=== PATIENT | male | born 1935 | race Two or more races ===

== ENCOUNTER → 2016-08-14 | Outpatient (CLI) | payer OTHER ==
[2016-08-14 06:48] LABS: Urine RBC None Seen /hpf (0 - 3)
[2016-08-14 08:15] LABS: Basophils # (auto) 0.1 uL; Basophils % (auto) 0.6 % (0.0-2.0); Eosinophils # (auto) 0.5 uL; Eosinophils % (auto) 4.3 % (0.0-7.0); Hematocrit 43.1 % (41.0-53.0); Lymphocytes # (auto) 4.7 uL; Lymphocytes % (auto) 42.6 % (10.0-50.0); Mean Corpuscular Hemoglobin 28.5 pg (28.0-32.0); Mean Corpuscular Hgb Conc. 32.4 g/dL (32.0-36.0); Mean Corpuscular Volume 87.9 fL (80.0-100.0); Monocytes # (auto) 0.8 uL; Monocytes % (auto) 6.8 % (0.0-12.0); Neutrophils # (auto) 5.1 uL; Neutrophils % (auto) 45.7 % (37.0-80.0); Platelet Count (auto) 342 10^3/uL (140-450); Red Cell Distribution Width 15.6 % (11.6-16.0); White Blood Cell 11.1 10^3/uL (4.4-10.8)
[2016-08-14 08:37] LABS: Urine Bilirubin Negative (Negative); Urine Blood Negative /uL (Negative); Urine Color Yellow (Yellow); Urine Glucose Normal (Normal); Urine Ketone Negative (Negative); Urine Nitrite Negative (Negative); Urine Squamous Epithelial Cell FEW /hpf (<5); Urine Urobilinogen Normal (Negative)
[2016-08-14 08:48] LABS: Albumin 3.3 g/dL (3.4-5.0); BUN/Creatinine Ratio 20.2; Bilirubin, Total 0.4 mg/dL (0.2-1.0); Calcium 8.7 mg/dL (8.5-10.1); Potassium 4.1 mmol/L (3.5-5.1); Total Protein 6.7 g/dL (6.4-8.2)
== END | disposition home or self-care (01) ==
LOC: LAB 06:36
DX: E11.21 Type 2 diabetes mellitus with diabetic nephropathy (principal); E55.9 Vitamin D deficiency, unspecified
CPT/HCPCS: 36415; 80053; 80061; 81001; 82043; 82306; 83036; 84443; 85025

== ENCOUNTER → 2017-06-16 | Outpatient (CLI) | payer OTHER ==
[2017-06-16 07:20] LABS: Basophils # (auto) 0.1 uL; Eosinophils # (auto) 0.5 uL; Eosinophils % (auto) 4.1 % (0.0-7.0); Hematocrit 43.7 % (41.0-53.0); Hemoglobin 14.5 g/dL (13.5-17.5); Lymphocytes # (auto) 3.8 uL; Lymphocytes % (auto) 34.1 % (10.0-50.0); Mean Corpuscular Hemoglobin 29.9 pg (28.0-32.0); Mean Corpuscular Hgb Conc. 33.2 g/dL (32.0-36.0); Monocytes % (auto) 9.2 % (0.0-12.0); Neutrophils # (auto) 5.8 uL; Neutrophils % (auto) 51.6 % (37.0-80.0); Nucleated Red Blood Cells % 0.1 %; Platelet Count (auto) 312 10^3/uL (140-450); Red Blood Cells 4.86 10^6/uL (4.5-5.90); Red Cell Distribution Width 14.6 % (11.8-14.3); White Blood Cell 11.2 10^3/uL (4.4-10.8)
[2017-06-16 07:36] LABS: Albumin 3.4 g/dL (3.4-5.0); BUN/Creatinine Ratio 24.8; Bilirubin, Total 0.3 mg/dL (0.2-1.0); Calcium 8.7 mg/dL (8.5-10.1); Potassium 4.1 mmol/L (3.5-5.1); Total Protein 6.9 g/dL (6.4-8.2)
== END | disposition home or self-care (01) ==
LOC: LAB 06:34
PROVIDERS: ATTEND Physician Assistant
DX: E11.21 Type 2 diabetes mellitus with diabetic nephropathy (principal); E78.2 Mixed hyperlipidemia; E78.5 Hyperlipidemia, unspecified; E55.9 Vitamin D deficiency, unspecified; N40.0 Benign prostatic hyperplasia without lower urinary tract symptoms
CPT/HCPCS: 36415; 80053; 80061; 82043; 82306; 83036; 84153; 85025

== ENCOUNTER → 2017-11-04 | Outpatient (CLI) | payer OTHER ==
[2017-11-04 08:10] LABS: Basophils # (auto) 0.1 uL; Basophils % (auto) 0.9 % (0.0-2.0); Eosinophils # (auto) 0.4 uL; Hemoglobin 14.5 g/dL (13.5-17.5); Lymphocytes # (auto) 3.9 uL; Mean Corpuscular Hemoglobin 30.3 pg (28.0-32.0); Mean Corpuscular Hgb Conc. 32.9 g/dL (32.0-36.0); Mean Corpuscular Volume 92.2 fL (80.0-100.0); Monocytes # (auto) 0.7 uL; Monocytes % (auto) 8.4 % (0.0-12.0); Neutrophils # (auto) 3.6 uL; Neutrophils % (auto) 40.7 % (37.0-80.0); Nucleated Red Blood Cells % 0.1 %; Platelet Count (auto) 284 10^3/uL (140-450); Red Blood Cells 4.77 10^6/uL (4.5-5.90); Red Cell Distribution Width 13.4 % (11.8-14.3); White Blood Cell 8.7 10^3/uL (4.4-10.8)
[2017-11-04 09:00] LABS: Albumin 3.3 g/dL (3.4-5.0); Bilirubin, Total 0.2 mg/dL (0.2-1.0); Potassium 4.4 mmol/L (3.5-5.1); Total Protein 6.6 g/dL (6.4-8.2)
== END | disposition home or self-care (01) ==
LOC: LAB 07:05
PROVIDERS: ATTEND Internal Medicine Cardiovascular Disease
DX: I10 Essential (primary) hypertension (principal); E78.2 Mixed hyperlipidemia; E11.9 Type 2 diabetes mellitus without complications
CPT/HCPCS: 36415; 80053; 80061; 85025

== ENCOUNTER → 2018-02-25 | Outpatient (CLI) | payer OTHER ==
[2018-02-25 07:01] LABS: Urine Bacteria NONE SEEN /hpf (None Seen); Urine Blood TRACE /uL (Negative); Urine Specific Gravity 1.022 (1.001-1.035); Urine WBC 1 /hpf (0 - 3)
[2018-02-25 07:03] LABS: Basophils # (auto) 0.1 uL; Basophils % (auto) 0.8 % (0.0-2.0); Eosinophils # (auto) 0.5 uL; Eosinophils % (auto) 4.6 % (0.0-7.0); Hematocrit 44.7 % (41.0-53.0); Hemoglobin 15.1 g/dL (13.5-17.5); Lymphocytes # (auto) 4.7 uL; Lymphocytes % (auto) 46.5 % (10.0-50.0); Mean Corpuscular Hemoglobin 30.9 pg (28.0-32.0); Mean Corpuscular Hgb Conc. 33.7 g/dL (32.0-36.0); Mean Corpuscular Volume 91.7 fL (80.0-100.0); Monocytes # (auto) 0.9 uL; Neutrophils # (auto) 3.9 uL; Neutrophils % (auto) 39.1 % (37.0-80.0); Nucleated Red Blood Cells % 0.1 %; Platelet Count (auto) 290 10^3/uL (140-450); Red Blood Cells 4.87 10^6/uL (4.5-5.90); White Blood Cell 10.1 10^3/uL (4.4-10.8)
[2018-02-25 07:14] LABS: Albumin 3.4 g/dL (3.4-5.0); Calcium 8.4 mg/dL (8.5-10.1); Potassium 4.2 mmol/L (3.5-5.1)
[2018-02-25 07:16] LABS: BUN/Creatinine Ratio 20.7
[2018-02-25 07:23] LABS: Bilirubin, Total 0.8 mg/dL (0.2-1.0); Total Protein 6.9 g/dL (6.4-8.2)
== END | disposition home or self-care (01) ==
LOC: LAB 06:26
PROVIDERS: ATTEND Physician Assistant
DX: N40.0 Benign prostatic hyperplasia without lower urinary tract symptoms (principal); I12.9 Hypertensive chronic kidney disease with stage 1 through stage 4 chronic kidney disease, or unspecified chronic kidney disease; E11.22 Type 2 diabetes mellitus with diabetic chronic kidney disease; N18.3 Chronic kidney disease, stage 3 (moderate); E11.21 Type 2 diabetes mellitus with diabetic nephropathy; E78.2 Mixed hyperlipidemia
CPT/HCPCS: 36415; 80053; 80061; 81001; 82306; 83036; 84153; 85025

== ENCOUNTER → 2019-04-23 | Outpatient (CLI) | payer OTHER ==
[2019-04-23 07:36] LABS: Basophils # (auto) 0.1 uL; Basophils % (auto) 0.9 % (0.0-2.0); Eosinophils # (auto) 0.2 uL; Eosinophils % (auto) 2.1 % (0.0-7.0); Hematocrit 44.7 % (41.0-53.0); Lymphocytes # (auto) 3.1 uL; Lymphocytes % (auto) 31.7 % (10.0-50.0); Mean Corpuscular Hemoglobin 30.7 pg (28.0-32.0); Mean Corpuscular Hgb Conc. 33.6 g/dL (32.0-36.0); Mean Corpuscular Volume 91.3 fL (80.0-100.0); Monocytes # (auto) 0.8 uL; Monocytes % (auto) 8.3 % (0.0-12.0); Neutrophils # (auto) 5.6 uL; Platelet Count (auto) 263 10^3/uL (140-450); Red Cell Distribution Width 14.4 % (11.8-14.3); White Blood Cell 9.9 10^3/uL (4.4-10.8)
[2019-04-23 07:51] LABS: Urine Bacteria NONE SEEN /hpf (None Seen); Urine Blood Negative /uL (Negative); Urine Specific Gravity 1.021 (1.001-1.035); Urine WBC 1 /hpf (0 - 3)
[2019-04-23 08:03] LABS: Albumin 3.5 g/dL (3.4-5.0); Calcium 8.8 mg/dL (8.5-10.1); Potassium 4.3 mmol/L (3.5-5.1)
[2019-04-23 08:10] LABS: BUN/Creatinine Ratio 21.7; Bilirubin, Total 0.7 mg/dL (0.2-1.0); Total Protein 6.6 g/dL (6.4-8.2)
== END | disposition home or self-care (01) ==
LOC: LAB 07:10
PROVIDERS: ATTEND Physician Assistant
DX: E11.9 Type 2 diabetes mellitus without complications (principal); E55.9 Vitamin D deficiency, unspecified; E78.5 Hyperlipidemia, unspecified; I25.10 Atherosclerotic heart disease of native coronary artery without angina pectoris; N40.0 Benign prostatic hyperplasia without lower urinary tract symptoms
CPT/HCPCS: 36415; 80053; 80061; 81001; 82306; 83036; 84153; 85025

== ENCOUNTER → 2019-06-09 | Outpatient (CLI) | payer OTHER | END | disposition home or self-care (01) | LOC: XYW 08:19 | PROVIDERS: ATTEND Internal Medicine | DX: I05.9 Rheumatic mitral valve disease, unspecified (principal); I11.9 Hypertensive heart disease without heart failure; R00.0 Tachycardia, unspecified | CPT/HCPCS: 93306 ==

== ENCOUNTER → 2019-06-28 | Outpatient (CLI) | payer OTHER ==
[~2019-06-28] MED LIST: CHLO25TA22 PO; ERGO1CAP6 PO; GLIP10TA9 PO; LISI10TA6 PO; LOVA20TA4 PO
[2019-06-28 09:09] LABS: BUN/Creatinine Ratio 40.6; Calcium 8.9 mg/dL (8.5-10.1)
== END | disposition home or self-care (01) ==
LOC: LAB 08:16
PROVIDERS: ATTEND Internal Medicine
DX: R60.0 Localized edema (principal)
CPT/HCPCS: 36415; 80048; 83880

== ENCOUNTER 2019-06-29 09:22 | Inpatient (IN) | payer OTHER, MEDICAID ==
[~2019-06-29] VITALS: Ht 165.1 cm; Wt 59.7 kg
--- NOTE | 2019-06-29 09:33 | NUR ---
Pt Arrived on Unit Pt arrived on unit as a direct admit. Pt is a/ox4 with no s/s of distress or SOB. Placed pt in a gown and pt was able to ambulate to bedside from wheelchair without any difficulty. Safety measures maintained with bed in lowest position and side rails up. secretary to board of commissioners notified Dr Adam that pt is on unit. Will continue to monitor for changes q1hr and prn.
[2019-06-29 10:23] VITALS: BP 106/61
[2019-06-29] MEDS ORDERED: LISI10TA6 PO (10:37)
[2019-06-29] MEDS ORDERED: CHLO25TA22 PO (10:37)
[2019-06-29] MEDS ORDERED: ERGO1CAP6 PO (10:37)
[2019-06-29] MEDS ORDERED: GLIP10TA9 PO (10:37)
[2019-06-29] MEDS ORDERED: LOVA20TA4 PO (10:37)
--- NOTE | 2019-06-29 11:21 | NUR ---
Dr Adam at Bedside MD to see pt. MD will place orders.
[2019-06-29] MEDS ORDERED: MORPHINE SULF INJ 2 MG/ML SYRINGE 1ML IV PRN (11:30)
[2019-06-29] MEDS ORDERED: traMADol HCL 50 MG TAB PO PRN (11:30)
[2019-06-29] MEDS ORDERED: NITROGLYCERIN 0.4 MG SL TAB SL PRN (11:30)
[2019-06-29] MEDS ORDERED: ONDANSETRON HCL 4 MG/2 ML VIAL IV PRN (11:30)
[2019-06-29] MEDS ORDERED: DEXTROSE (50%) 50ML SYRG IV PRN (11:30)
--- NOTE | 2019-06-29 11:40 | NUR ---
UA Sent to Lab
[2019-06-29 11:51] LABS: Urine WBC None Seen /hpf (0 - 3)
[2019-06-29 11:58] LABS: Urine Bacteria NONE SEEN /hpf (None Seen); Urine Blood Negative /uL (Negative); Urine Specific Gravity 1.005 (1.001-1.035)
[2019-06-29 11:59] LABS: Basophils # (auto) 0.1 uL; Basophils % (auto) 0.5 % (0.0-2.0); Eosinophils # (auto) 0.2 uL; Hematocrit 47.1 % (41.0-53.0); Hemoglobin 15.6 g/dL (13.5-17.5); Lymphocytes # (auto) 2.9 uL; Lymphocytes % (auto) 18.6 % (10.0-50.0); Mean Corpuscular Hemoglobin 29.9 pg (28.0-32.0); Mean Corpuscular Hgb Conc. 33.1 g/dL (32.0-36.0); Mean Corpuscular Volume 90.2 fL (80.0-100.0); Monocytes # (auto) 1.1 uL; Monocytes % (auto) 7.2 % (0.0-12.0); Neutrophils # (auto) 11.2 uL; Neutrophils % (auto) 72.7 % (37.0-80.0); Nucleated Red Blood Cells % 0.2 %; Platelet Count (auto) 381 10^3/uL (140-450); Red Blood Cells 5.22 10^6/uL (4.5-5.90); Red Cell Distribution Width 14.3 % (11.8-14.3); White Blood Cell 15.4 10^3/uL (4.4-10.8)
--- NOTE | 2019-06-29 12:10 | NUR ---
IV Insertion 20G placed to pt's R FA. Clean sterile technique was used. Site is asymptomatic. IV is patent and flushes well. One attempt made. Pt tolerated insertion well.
[2019-06-29 12:14] LABS: INR 1.03 (0.9-1.15); Partial Thromboplastin Time 28.1 sec (23.64-32.05)
[2019-06-29 12:20] LABS: Albumin 3.3 g/dL (3.4-5.0); Calcium 9.1 mg/dL (8.5-10.1)
[2019-06-29] MEDS: SODIUM CHLORIDE 0.9% 1,000 ML IV SCH (12:21)
[2019-06-29] MEDS: ACCU-CHEK COMFORT CURVE STRIP VI SCH ×3 (12:21→22:32)
[2019-06-29 12:23] LABS: BUN/Creatinine Ratio 51.4; Bilirubin, Total 0.4 mg/dL (0.2-1.0); Total Protein 7.3 g/dL (6.4-8.2)
[2019-06-29] MEDS: InsuLIN REG 1unit/0.01ml Soln (100units/ml) SC SCH ×3 (12:25→22:36)
--- NOTE | 2019-06-29 12:30 | NUR ---
Critical Lab Reported Autumn from Lab reported a critical BUN of 91. Will page hospitalist to inform of critical lab value. Addendum: 06/29/19 at 1238 by CATALINO REDD RN RN Dr Adam made aware. has already ordered a Nephrology Consult. No new orders at this time. Will continue to monitor.
--- NOTE | 2019-06-29 13:08 | NUR ---
Contact Dr Dickerson is person of contact if needed for after hours. [phone]
[2019-06-29] MEDS: ACETAMINOPHEN 500 MG TAB PO PRN (16:59)
[2019-06-29 17:00] VITALS: BP_SYST 107; BP_SYST 99; BP_DIAS 48; BP_DIAS 57
--- NOTE | 2019-06-29 17:55 | NUR ---
Dr Liriano at Bedside to see pt. Requested that I do a bladder scan to see if pt has any retention post void. Pt able to void 250 mL of pale yellow urine bladder scan showed 138 mL residual in bladder. Will notify MD. Addendum: 06/29/19 at 1801 by CATALINO REDD RN RN MD made aware of output; requested that a manzo catheter be placed. Will implement and follow through.
--- NOTE | 2019-06-29 18:16 | NUR ---
Attempted to Place Manzo Catheter Attempted to place manzo catheter. Unable to advance the catheter fully. Pt in visible pain upon attempting to insert the catheter. Pt requested that the catheter would not be placed and to not try again. Discussed with pt the purpose of the catheter and the reasons for the catheter at this time. Pt still refuses placement. Will continue to monitor urinary output and endorse to NOC shift.
--- NOTE | 2019-06-29 19:00 | NUR ---
Received report from the Day Shift RN. Initial assessment done. Pt. in bed resting alert, awake, oriented x 3-4, in Room air, breathing regular and unlabored. Pt. denies pain and denies headache. Pt. with IVF of NS @ 75 mls./hr. connected to the PIV @ RFA G # 20 with @ the bedside supportive to pt. care. Pt. on bedrest. Generally skin intact.
--- NOTE | 2019-06-29 19:30 | NUR ---
Pt. Sinus Rhythm @ the monitor.
[2019-06-29 20:00] VITALS: BP 92/40
--- NOTE | 2019-06-29 20:00 | NUR ---
Assessment done from head to toe. Pt. calm and quiet. Denies pain when assessed. Pt. refused Tylenol po. pain reliever and told RN Echo that he has no headache and no pain @ this time. Pt. adlib in bed, on bedrest , with SMOKING PIPE COATER @ the bedside to keep watch pt. safety and assist pt./family needs @ the bedside. Pt. with BSC, refused F/C to start to monitor I & O since pt. is diagnosed Acute Renal Failure. Pt. will be watched, observed and monitored for urine output within the shift.
--- NOTE | 2019-06-29 21:31 | NUR ---
Accucheck taken with result of = 218. Pt. able to eat dinner about 75 % of the mealtray. Pt. able to swallow food well.
[2019-06-29 22:00] VITALS: BP 103/53
--- NOTE | 2019-06-29 22:36 | NUR ---
Pt. given 4 units of Regular Human Insulin SQ @ the JAMEL deltoid adipose area for BS = 218. Pt. aware of the blood sugar result and provided health teachings of the use/benefit of the Insulin as scheduled with sliding scale.
--- NOTE | 2019-06-30 | NUR ---
Pt. Sinus Rhythm @ the monitor worker.
--- NOTE | 2019-06-30 00:10 | NUR ---
Reassessment done. Pt. is sleeping already. Pt. face and body looks comfortable. Still in Room air, denies pain,
--- NOTE | 2019-06-30 00:10 | NUR ---
Reassessment done. Pt. is sleeping already. Pt. face and body looks comfortable. Still in Room air, denies short of breath. denies any pain, denies headache. Pt. refused Tylenol po. as he stated that he has no headache. Pt. returned to sleep.
[2019-06-30] MEDS: SODIUM CHLORIDE 0.9% 1,000 ML IV SCH ×2 (00:20→13:02)
--- NOTE | 2019-06-30 00:30 | NUR ---
Pt. still refused F/C and doesn't want F/C that it is painful for him. Pt. keep safe and office coordinator bed. Maintained a quiet and dim lighted room environment.
--- NOTE | 2019-06-30 02:00 | NUR ---
No /s of acute change. SIGHTER reported that pt. was able to void using urinal about 600 mls. plus + able to empty urinals x 4 unaccounted. Pt. urine is light yellow wesley urine, no odor and voided about 8-10 times now.
--- NOTE | 2019-06-30 03:55 | NUR ---
Pt. Sinus Rhythm @ the monitor.
--- NOTE | 2019-06-30 04:00 | NUR ---
Pt. still sleeping comfortabley. as a family member to represent pt. ,overstayed and slept @ the bedside. Pt. Sinus Rhythm @ the monitor. No s/s of acute change.
[2019-06-30 05:00] VITALS: BP 112/65
[2019-06-30] MEDS: ACCU-CHEK COMFORT CURVE STRIP VI SCH ×4 (06:20→21:13)
[2019-06-30] MEDS: InsuLIN REG 1unit/0.01ml Soln (100units/ml) SC SCH ×4 (06:25→21:13)
[2019-06-30 06:32] LABS: Basophils # (auto) 0.1 uL; Basophils % (auto) 0.8 % (0.0-2.0); Eosinophils # (auto) 0.2 uL; Eosinophils % (auto) 2.2 % (0.0-7.0); Hematocrit 43.3 % (41.0-53.0); Hemoglobin 14.6 g/dL (13.5-17.5); Lymphocytes # (auto) 2.9 uL; Lymphocytes % (auto) 27.9 % (10.0-50.0); Mean Corpuscular Hemoglobin 30.3 pg (28.0-32.0); Mean Corpuscular Hgb Conc. 33.7 g/dL (32.0-36.0); Mean Corpuscular Volume 89.8 fL (80.0-100.0); Monocytes % (auto) 9.5 % (0.0-12.0); Neutrophils # (auto) 6.3 uL; Neutrophils % (auto) 59.6 % (37.0-80.0); Nucleated Red Blood Cells % 0.1 %; Platelet Count (auto) 344 10^3/uL (140-450); Red Blood Cells 4.83 10^6/uL (4.5-5.90); Red Cell Distribution Width 14.1 % (11.8-14.3); White Blood Cell 10.5 10^3/uL (4.4-10.8)
[2019-06-30 06:46] LABS: BUN/Creatinine Ratio 45.5; Calcium 9.1 mg/dL (8.5-10.1); Potassium 4.9 mmol/L (3.5-5.1)
--- NOTE | 2019-06-30 07:31 | NUR ---
Opening Note Assumed pt care from [facility] nurse. Pt is a/ox4 with no s/s of distress or SOB. Pt is currently sitting upright in bed with no complaints at this time. is at bedside. Discussed POC with pt and need to monitor intake and output; both and pt made aware. Safety measures maintained with call light within reach, bed in lowest position and side rails up. Will continue to monitor for changes q1hr and prn.
[2019-06-30] MEDS: ACETAMINOPHEN 500 MG TAB PO PRN (07:50)
[2019-06-30 09:00] VITALS: BP 100/49
--- NOTE | 2019-06-30 10:18 | NUR ---
Dr Rosas at Bedside MD to see pt. Requested that the urine bacteria culture be follow up with. MD also ordered IV antibiotics. Will continue to monitor.
--- NOTE | 2019-06-30 11:27 | NUR ---
Dr Adam at Bedside MD to see pt. requests that PT visit and evaluate pt. Will implement and follow through.
[2019-06-30 13:00] VITALS: BP 103/53
[2019-06-30 16:49] VITALS: BP 94/53
[2019-06-30] MEDS ORDERED: TAMSULOSIN HYDROCHLORIDE 0.4 MG CAP PO SCH (18:00)
[2019-06-30 21:42] VITALS: BP 107/59
[2019-07-01] MEDS: ACETAMINOPHEN 500 MG TAB PO PRN (01:08)
[2019-07-01] MEDS: SODIUM CHLORIDE 0.9% 1,000 ML IV SCH (03:43)
[2019-07-01 05:14] VITALS: BP 121/64
[2019-07-01 05:47] LABS: Calcium 8.7 mg/dL (8.5-10.1); Potassium 4.7 mmol/L (3.5-5.1)
[2019-07-01] MEDS: InsuLIN REG 1unit/0.01ml Soln (100units/ml) SC SCH (06:13)
[2019-07-01] MEDS: ACCU-CHEK COMFORT CURVE STRIP VI SCH ×2 (06:14→11:23)
--- NOTE | 2019-07-01 06:14 | NUR ---
Holding Regular insulin per sliding scale for blood glucose level of 132 mg/dl because patient and patient's report that patient's blood glucose tends to drop quickly and severely. Will continue to assess.
--- NOTE | 2019-07-01 07:30 | NUR ---
Opening Shift Note Assumed care of patient, awake and alert. No S/S of distress/SOB or pain. Instructed on POC and to call for assist PRN, will continue to monitor for changes Q1hr and PRN.
[2019-07-01] MEDS ORDERED: cefTRIAXone 1GM/50ML D5W 50 ML IV SCH (09:00)
--- NOTE | 2019-07-01 11:05 | NUR ---
Dr. Melton in to see patient as hospitalist.
[2019-07-01] MEDS ORDERED: CYANOCOBALAMIN (B-12) 1000 MCG/1 ML VIAL SUBCUT ONE (11:15)
--- NOTE | 2019-07-01 11:20 | NUR ---
Received call from Dr. Dickerson. She states she has arranged transport for the patient. She states transport will be here at 12:30. Patient and his informed.
[2019-07-01 11:36] VITALS: BP 94/65
--- NOTE | 2019-07-01 12:05 | NUR ---
Discharge instructions given as ordered. Encourage to follow up with PMD as instructed. All questions and concerns addressed. Patient verbalized understanding. Medication reconciliation form completed and copy given to patient. IV removed with catheter intact, pressure dressing applied. Telemetry unit returned to ICU. Patient taken to vehicle via wheelchair with all personal belongings, accompanied by staff and family member. No distress noted at time of departure. Patient taken to lobby in to wait for ride home. at side.
== END 2019-07-01 12:05 | disposition home or self-care (01) | DRG 684 ==
LOC: TELE-EAST 09:22
PROVIDERS: ADMIT Internal Medicine; ATTEND Internal Medicine
DX: N17.0 Acute kidney failure with tubular necrosis (principal); N18.3 Chronic kidney disease, stage 3 (moderate); N40.0 Benign prostatic hyperplasia without lower urinary tract symptoms; N28.1 Cyst of kidney, acquired; E78.5 Hyperlipidemia, unspecified; E11.22 Type 2 diabetes mellitus with diabetic chronic kidney disease; I12.9 Hypertensive chronic kidney disease with stage 1 through stage 4 chronic kidney disease, or unspecified chronic kidney disease; I25.10 Atherosclerotic heart disease of native coronary artery without angina pectoris; E53.8 Deficiency of other specified B group vitamins; R79.89 Other specified abnormal findings of blood chemistry; M17.0 Bilateral primary osteoarthritis of knee; Z82.49 Family history of ischemic heart disease and other diseases of the circulatory system; Z95.5 Presence of coronary angioplasty implant and graft
CPT/HCPCS: 36415; 71045; 76775; 80048; 80053; 81001; 82607; 82962; 83036; 84443; 85025; 85610; 85730; 87086; G0378; J0696; J1815

== ENCOUNTER → 2019-08-17 | Outpatient (CLI) | payer OTHER, MEDICAID ==
[2019-08-17 07:55] LABS: Basophils # (auto) 0.1 10 ^3/uL (0-0.2); Basophils % (auto) 1.1 % (0.0-2.0); Eosinophils # (auto) 0.5 10 ^3/uL (0-0.8); Eosinophils % (auto) 5.4 % (0.0-7.0); Hematocrit 45.3 % (41.0-53.0); Hemoglobin 14.7 g/dL (13.5-17.5); Lymphocytes % (auto) 36.2 % (10.0-50.0); Mean Corpuscular Hgb Conc. 32.5 g/dL (32.0-36.0); Mean Corpuscular Volume 92.5 fL (80.0-100.0); Monocytes # (auto) 0.7 10 ^3/uL (0-1.3); Monocytes % (auto) 8.5 % (0.0-12.0); Neutrophils # (auto) 4.1 10 ^3/uL (1.6-8.6); Neutrophils % (auto) 48.8 % (37.0-80.0); Platelet Count (auto) 273 10^3/uL (140-450); Red Cell Distribution Width 15.2 % (11.8-14.3); White Blood Cell 8.4 10^3/uL (4.4-10.8)
[2019-08-17 08:02] LABS: Urine Bacteria NONE SEEN /hpf (None Seen); Urine Blood Negative /uL (Negative); Urine Specific Gravity 1.022 (1.001-1.035); Urine WBC <1 /hpf (0 - 3)
[2019-08-17 08:13] LABS: Albumin 3.4 g/dL (3.4-5.0); Calcium 8.9 mg/dL (8.5-10.1); Potassium 3.4 mmol/L (3.5-5.1)
[2019-08-17 08:18] LABS: Bilirubin, Total 0.4 mg/dL (0.2-1.0); Total Protein 6.8 g/dL (6.4-8.2)
== END | disposition home or self-care (01) ==
LOC: LAB 07:09
PROVIDERS: ATTEND Obstetrics & Gynecology
DX: E11.22 Type 2 diabetes mellitus with diabetic chronic kidney disease (principal); N18.3 Chronic kidney disease, stage 3 (moderate); N40.0 Benign prostatic hyperplasia without lower urinary tract symptoms; N17.0 Acute kidney failure with tubular necrosis; I25.10 Atherosclerotic heart disease of native coronary artery without angina pectoris; R53.1 Weakness
CPT/HCPCS: 36415; 80053; 80061; 81001; 83036; 84153; 84443; 85025; 87086; 87088; 87186

== ENCOUNTER → 2020-04-25 | Outpatient (CLI) | payer OTHER, MEDICAID ==
[~2020-04-25] MED LIST changes: +ERGO1CAP12 PO; -ERGO1CAP6 PO; +LISI-648 PO; -LISI10TA6 PO
[2020-04-25 08:15] LABS: Urine WBC None Seen /hpf (0 - 3)
[2020-04-25 08:26] LABS: Urine Bacteria NONE SEEN /hpf (None Seen); Urine Blood Negative /uL (Negative); Urine Specific Gravity 1.023 (1.001-1.035)
[2020-04-25 08:33] LABS: Basophils # (auto) 0.1 10 ^3/uL (0-0.2); Basophils % (auto) 0.8 % (0.0-2.0); Eosinophils # (auto) 0.3 10 ^3/uL (0-0.8); Eosinophils % (auto) 3.2 % (0.0-7.0); Hematocrit 43.8 % (41.0-53.0); Hemoglobin 14.4 g/dL (13.5-17.5); Lymphocytes # (auto) 3.7 10 ^3/uL (0.4-5.4); Lymphocytes % (auto) 36.1 % (10.0-50.0); Mean Corpuscular Hemoglobin 30.8 pg (28.0-32.0); Mean Corpuscular Hgb Conc. 32.9 g/dL (32.0-36.0); Mean Corpuscular Volume 93.9 fL (80.0-100.0); Monocytes # (auto) 0.7 10 ^3/uL (0-1.3); Monocytes % (auto) 7.2 % (0.0-12.0); Neutrophils # (auto) 5.4 10 ^3/uL (1.6-8.6); Neutrophils % (auto) 52.7 % (37.0-80.0); Platelet Count (auto) 325 10^3/uL (140-450); Red Blood Cells 4.66 10^6/uL (4.5-5.90); White Blood Cell 10.2 10^3/uL (4.4-10.8)
[2020-04-25 09:41] LABS: Potassium 3.7 mmol/L (3.5-5.1)
[2020-04-25 09:54] LABS: Albumin 3.4 g/dL (3.4-5.0); Bilirubin, Total 0.5 mg/dL (0.2-1.0); Calcium 9.1 mg/dL (8.5-10.1)
== END | disposition home or self-care (01) ==
LOC: LAB 07:08
PROVIDERS: ATTEND Physician Assistant
DX: E11.21 Type 2 diabetes mellitus with diabetic nephropathy (principal); N40.1 Benign prostatic hyperplasia with lower urinary tract symptoms; I11.9 Hypertensive heart disease without heart failure; E78.5 Hyperlipidemia, unspecified; N17.9 Acute kidney failure, unspecified; E55.9 Vitamin D deficiency, unspecified
CPT/HCPCS: 36415; 80053; 80061; 81001; 82043; 82306; 83036; 84153; 85025

== ENCOUNTER → 2020-07-17 | Outpatient (CLI) | payer OTHER, MEDICAID ==
[~2020-07-17] MED LIST changes: +CHLO25TA2 PO; -CHLO25TA22 PO
[2020-07-17 17:24] LABS: Urine Bacteria NONE SEEN /hpf (None Seen); Urine Blood 2+ /uL (Negative); Urine Mucus FEW (None Seen); Urine Specific Gravity 1.023 (1.001-1.035); Urine WBC 1 /hpf (0 - 3)
== END | disposition home or self-care (01) ==
LOC: LAB 17:06
PROVIDERS: ATTEND Urology
DX: Z00.00 Encounter for general adult medical examination without abnormal findings (principal)
CPT/HCPCS: 81001; 87086

== ENCOUNTER → 2020-08-15 | Outpatient (CLI) | payer OTHER, MEDICAID | END | disposition home or self-care (01) | LOC: XYW 08:18 | PROVIDERS: ATTEND Physician Assistant | DX: I08.0 Rheumatic disorders of both mitral and aortic valves (principal); I65.23 Occlusion and stenosis of bilateral carotid arteries; I11.9 Hypertensive heart disease without heart failure; I16.0 Hypertensive urgency; R55 Syncope and collapse | CPT/HCPCS: 93306; 93886 ==

== ENCOUNTER 2020-08-18 06:08 | Inpatient (IN) | payer OTHER, MEDICAID ==
[~2020-08-18] VITALS: Ht 165.1 cm; Wt 77.1 kg
[2020-08-18] MEDS ORDERED: TAMSULOSIN HYDROCHLORIDE 0.4 MG CAP PO ONE (07:00)
[2020-08-18] MEDS ORDERED: SODIUM CHLORIDE 0.9% 1,000 ML IV ONE (07:00)
[2020-08-18 07:39] LABS: Basophils # (auto) 0.1 10 ^3/uL (0-0.2); Basophils % (auto) 0.7 % (0.0-2.0); Eosinophils # (auto) 0.1 10 ^3/uL (0-0.8); Eosinophils % (auto) 0.5 % (0.0-7.0); Hematocrit 42.5 % (41.0-53.0); Hemoglobin 14.3 g/dL (13.5-17.5); Lymphocytes # (auto) 2.6 10 ^3/uL (0.4-5.4); Lymphocytes % (auto) 18.5 % (10.0-50.0); Mean Corpuscular Hemoglobin 31.6 pg (28.0-32.0); Mean Corpuscular Hgb Conc. 33.6 g/dL (32.0-36.0); Mean Corpuscular Volume 94.1 fL (80.0-100.0); Monocytes # (auto) 0.6 10 ^3/uL (0-1.3); Monocytes % (auto) 4.4 % (0.0-12.0); Neutrophils # (auto) 10.7 10 ^3/uL (1.6-8.6); Neutrophils % (auto) 75.9 % (37.0-80.0); Platelet Count (auto) 398 10^3/uL (140-450); Red Blood Cells 4.52 10^6/uL (4.5-5.90); Red Cell Distribution Width 14.5 % (11.8-14.3); Urine Bacteria NONE SEEN /hpf (None Seen); Urine Blood 3+ /uL (Negative); Urine WBC 1 /hpf (0 - 3); White Blood Cell 14.1 10^3/uL (4.4-10.8)
[2020-08-18] MEDS ORDERED: MORPHINE SULF INJ 2 MG/ML SYRINGE 1ML IV ONE (07:45)
[2020-08-18] MEDS ORDERED: ONDANSETRON HCL 4 MG/2 ML VIAL IV ONE (07:45)
[2020-08-18 07:50] LABS: Albumin 3.4 g/dL (3.4-5.0); Anion Gap 7 (5-15); Blood Urea Nitrogen 30 mg/dL (7-18); Calcium 9.2 mg/dL (8.5-10.1); Carbon Dioxide 23 mmol/L (21-32); Chloride 111 mmol/L (98-107); Glucose 230 mg/dL (74-106); Potassium 4.4 mmol/L (3.5-5.1); Sodium 141 mmol/L (136-145)
[2020-08-18 07:57] LABS: Alanine Aminotransferase 22 U/L (16-61); Alkaline Phosphatase 102 U/L (45-117); Aspartate Aminotransferase 19 U/L (15-37); BUN/Creatinine Ratio 18.2; Bilirubin, Total 0.4 mg/dL (0.2-1.0); GFR African American 51 mL/min; GFR Non-African American 42 mL/min; Total Protein 7.1 g/dL (6.4-8.2)
[2020-08-18] MEDS ORDERED: MORPHINE SULFATE 4 MG/ML SYR/VIAL IV ONE ×2 (08:00)
[2020-08-18] MEDS ORDERED: cefTRIAXone 1GM/50ML D5W 50 ML IV ONE (09:00)
[2020-08-18] MEDS ORDERED: LIDOCAINE 2%HCL (LOCAL ANESTH.) INJ 20ML MDV ONE ×2 (10:22→10:47)
[2020-08-18] MEDS ORDERED: IOHEXOL 350 MG/ML 100ML IJ ONE (10:27)
[2020-08-18] MEDS ORDERED: MORPHINE SULF INJ 2 MG/ML SYRINGE 1ML IV PRN (10:30)
[2020-08-18] MEDS ORDERED: NITROGLYCERIN 0.4 MG SL TAB SL PRN (10:30)
[2020-08-18 10:37] LABS: Partial Thromboplastin Time 26.4 sec (23.0-31.2)
[2020-08-18] MEDS ORDERED: fentaNYL CITRATE 100 MCG/2 ML VL ONE (10:47)
[2020-08-18] MEDS ORDERED: MIDAZOLAM HCL 1MG/1ML-2 ML VIAL ONE (10:47)
[2020-08-18] MEDS ORDERED: ACETAMINOPHEN 500 MG TAB PO PRN (12:15)
[2020-08-18] MEDS ORDERED: ONDANSETRON HCL 4 MG/2 ML VIAL IV PRN (12:15)
[2020-08-18] MEDS ORDERED: DEXTROSE (50%) 50ML SYRG IV PRN (12:15)
[2020-08-18] MEDS: SODIUM CHLORIDE 0.9% 1,000 ML IV SCH ×2 (13:26→21:55)
[2020-08-18] MEDS ORDERED: TRAM50TA2 PO (14:28)
[2020-08-18 17:14] VITALS: BP 133/66
[2020-08-18] MEDS: ACCU-CHEK COMFORT CURVE STRIP VI SCH ×2 (18:01→21:50)
[2020-08-18] MEDS: InsuLIN REG 1unit/0.01ml Soln (100units/ml) SC SCH ×2 (18:06→21:55)
[2020-08-18] MEDS ORDERED: FAMOTIDINE 20 MG TAB PO SCH (22:00)
[2020-08-19 05:00] VITALS: BP 123/69
[2020-08-19] MEDS: ACCU-CHEK COMFORT CURVE STRIP VI SCH ×4 (06:37→21:10)
[2020-08-19 08:06] LABS: Basophils # (auto) 0.1 10 ^3/uL (0-0.2); Basophils % (auto) 1.1 % (0.0-2.0); Eosinophils # (auto) 0.2 10 ^3/uL (0-0.8); Eosinophils % (auto) 1.7 % (0.0-7.0); Hematocrit 38.3 % (41.0-53.0); Hemoglobin 12.7 g/dL (13.5-17.5); Lymphocytes # (auto) 3.3 10 ^3/uL (0.4-5.4); Lymphocytes % (auto) 29.7 % (10.0-50.0); Mean Corpuscular Hemoglobin 30.6 pg (28.0-32.0); Mean Corpuscular Volume 92.6 fL (80.0-100.0); Monocytes # (auto) 0.9 10 ^3/uL (0-1.3); Neutrophils # (auto) 6.6 10 ^3/uL (1.6-8.6); Neutrophils % (auto) 59.5 % (37.0-80.0); Platelet Count (auto) 349 10^3/uL (140-450); Red Blood Cells 4.14 10^6/uL (4.5-5.90); Red Cell Distribution Width 14.1 % (11.8-14.3)
[2020-08-19] MEDS: InsuLIN REG 1unit/0.01ml Soln (100units/ml) SC SCH ×4 (08:07→21:13)
[2020-08-19 08:23] LABS: Albumin 3.1 g/dL (3.4-5.0); Calcium 8.8 mg/dL (8.5-10.1); Potassium 3.7 mmol/L (3.5-5.1)
[2020-08-19 08:25] LABS: BUN/Creatinine Ratio 21.4
[2020-08-19 08:28] LABS: Bilirubin, Total 0.5 mg/dL (0.2-1.0); Total Protein 6.3 g/dL (6.4-8.2)
[2020-08-19 09:00] VITALS: BP 123/66
[2020-08-19] MEDS: cefTRIAXone 1GM/50ML D5W 50 ML IV SCH (11:03)
[2020-08-19] MEDS: SODIUM CHLORIDE 0.9% 1,000 ML IV SCH ×2 (11:03→18:49)
[2020-08-19] MEDS: LISINOPRIL 10 MG TAB PO SCH (11:04)
[2020-08-19 13:00] VITALS: BP 128/75
[2020-08-19 17:00] VITALS: BP 136/92
[2020-08-19] MEDS: FAMOTIDINE 20 MG TAB PO SCH (21:10)
[2020-08-19] MEDS: ATORVASTATIN 20 MG TAB PO SCH (21:10)
[2020-08-19 22:00] VITALS: BP 139/71
[2020-08-20 05:00] VITALS: BP 109/52
[2020-08-20] MEDS: SODIUM CHLORIDE 0.9% 1,000 ML IV SCH ×2 (05:26→15:35)
[2020-08-20 06:13] LABS: Potassium 3.8 mmol/L (3.5-5.1)
[2020-08-20] MEDS: ACCU-CHEK COMFORT CURVE STRIP VI SCH ×3 (06:22→15:35)
[2020-08-20] MEDS: glipiZIDE 5 MG TAB PO SCH (06:22)
[2020-08-20 06:27] LABS: Albumin 2.9 g/dL (3.4-5.0); BUN/Creatinine Ratio 18.6; Bilirubin, Total 0.4 mg/dL (0.2-1.0); Calcium 9.1 mg/dL (8.5-10.1); Total Protein 5.9 g/dL (6.4-8.2)
[2020-08-20] MEDS: InsuLIN REG 1unit/0.01ml Soln (100units/ml) SC SCH ×4 (06:31→21:40)
[2020-08-20 08:44] LABS: Basophils # (auto) 0.1 10 ^3/uL (0-0.2); Basophils % (auto) 0.8 % (0.0-2.0); Eosinophils # (auto) 0.3 10 ^3/uL (0-0.8); Eosinophils % (auto) 2.6 % (0.0-7.0); Hematocrit 38.2 % (41.0-53.0); Hemoglobin 12.9 g/dL (13.5-17.5); Lymphocytes # (auto) 3.3 10 ^3/uL (0.4-5.4); Mean Corpuscular Hemoglobin 31.4 pg (28.0-32.0); Mean Corpuscular Hgb Conc. 33.6 g/dL (32.0-36.0); Mean Corpuscular Volume 93.2 fL (80.0-100.0); Monocytes % (auto) 9.9 % (0.0-12.0); Neutrophils # (auto) 5.7 10 ^3/uL (1.6-8.6); Neutrophils % (auto) 54.7 % (37.0-80.0); Platelet Count (auto) 326 10^3/uL (140-450); Red Cell Distribution Width 14.4 % (11.8-14.3); White Blood Cell 10.4 10^3/uL (4.4-10.8)
[2020-08-20 09:00] VITALS: BP 137/69
[2020-08-20] MEDS: cefTRIAXone 1GM/50ML D5W 50 ML IV SCH (11:01)
[2020-08-20] MEDS: LISINOPRIL 10 MG TAB PO SCH (11:02)
[2020-08-20 13:00] VITALS: BP 122/78
[2020-08-20 17:00] VITALS: BP 130/71
[2020-08-20] MEDS: ATORVASTATIN 20 MG TAB PO SCH (21:36)
[2020-08-20] MEDS: FAMOTIDINE 20 MG TAB PO SCH (21:41)
[2020-08-20 22:00] VITALS: BP 126/69
[2020-08-21] MEDS: ACCU-CHEK COMFORT CURVE STRIP VI SCH ×5 (05:28→21:12)
[2020-08-21] MEDS: SODIUM CHLORIDE 0.9% 1,000 ML IV SCH ×3 (05:29→21:11)
[2020-08-21 06:10] VITALS: BP 139/78
[2020-08-21 06:12] LABS: Basophils # (auto) 0.1 10 ^3/uL (0-0.2); Basophils % (auto) 1.1 % (0.0-2.0); Eosinophils # (auto) 0.3 10 ^3/uL (0-0.8); Eosinophils % (auto) 3.7 % (0.0-7.0); Hematocrit 41.7 % (41.0-53.0); Hemoglobin 13.6 g/dL (13.5-17.5); Lymphocytes # (auto) 2.9 10 ^3/uL (0.4-5.4); Lymphocytes % (auto) 32.1 % (10.0-50.0); Mean Corpuscular Hemoglobin 30.3 pg (28.0-32.0); Mean Corpuscular Hgb Conc. 32.6 g/dL (32.0-36.0); Mean Corpuscular Volume 92.9 fL (80.0-100.0); Monocytes % (auto) 11.2 % (0.0-12.0); Neutrophils # (auto) 4.6 10 ^3/uL (1.6-8.6); Neutrophils % (auto) 51.9 % (37.0-80.0); Nucleated Red Blood Cells % 0.1 %; Platelet Count (auto) 320 10^3/uL (140-450); Red Blood Cells 4.49 10^6/uL (4.5-5.90); Red Cell Distribution Width 14.6 % (11.8-14.3); White Blood Cell 8.9 10^3/uL (4.4-10.8)
[2020-08-21 06:28] LABS: INR 1.03 (0.9-1.15)
[2020-08-21] MEDS: glipiZIDE 5 MG TAB PO SCH (06:28)
[2020-08-21] MEDS: InsuLIN REG 1unit/0.01ml Soln (100units/ml) SC SCH ×4 (06:30→21:14)
[2020-08-21 06:34] LABS: Albumin 3.1 g/dL (3.4-5.0); BUN/Creatinine Ratio 17.3; Calcium 8.7 mg/dL (8.5-10.1); Potassium 3.9 mmol/L (3.5-5.1)
[2020-08-21 06:37] LABS: Bilirubin, Total 0.5 mg/dL (0.2-1.0); Total Protein 6.3 g/dL (6.4-8.2)
[2020-08-21 08:30] VITALS: BP 117/69
[2020-08-21] MEDS: cefTRIAXone 1GM/50ML D5W 50 ML IV SCH (09:24)
[2020-08-21] MEDS: LISINOPRIL 10 MG TAB PO SCH (09:25)
[2020-08-21 12:00] VITALS: BP 130/76
[2020-08-21] MEDS ORDERED: IOHEXOL 300 MG/ML 100ML BOTTLE IJ ONE (12:28)
[2020-08-21] MEDS ORDERED: ceFAZolin 1GM/50ML 50 ML IV ONE (12:48)
[2020-08-21] MEDS ORDERED: MANNITOL FTV 25% 12.5 GM/50 ML 50 ML IV ONE (14:00)
[2020-08-21] MEDS ORDERED: MORPHINE SULFATE 4 MG/ML SYR/VIAL IV PRN (14:15)
[2020-08-21] MEDS ORDERED: MIDAZOLAM HCL 1MG/1ML-2 ML VIAL IV PRN (14:15)
[2020-08-21] MEDS ORDERED: ePHEDrine SULFATE 50 MG/ML AMP IV PRN (14:15)
[2020-08-21] MEDS ORDERED: LABETALOL HCL 5 MG/ML 4ML SYRINGE IV PRN (14:15)
[2020-08-21] MEDS ORDERED: ONDANSETRON HCL 4 MG/2 ML VIAL IV PRN (14:15)
[2020-08-21 15:29] VITALS: BP 134/77
[2020-08-21] MEDS: MORPHINE SULF INJ 2 MG/ML SYRINGE 1ML IV PRN (16:07)
[2020-08-21 17:45] VITALS: BP 129/70
[2020-08-21] MEDS: FAMOTIDINE 20 MG TAB PO SCH (21:11)
[2020-08-21] MEDS: ATORVASTATIN 20 MG TAB PO SCH (21:11)
[2020-08-21 22:00] VITALS: BP 144/87
[2020-08-22] MEDS: SODIUM CHLORIDE 0.9% 1,000 ML IV SCH ×2 (04:29→12:23)
[2020-08-22 05:00] VITALS: BP 132/72
[2020-08-22 05:44] LABS: Basophils # (auto) 0 10 ^3/uL (0-0.2); Basophils % (auto) 0.2 % (0.0-2.0); Eosinophils # (auto) 0 10 ^3/uL (0-0.8); Hematocrit 39.4 % (41.0-53.0); Hemoglobin 13.5 g/dL (13.5-17.5); Lymphocytes # (auto) 2.5 10 ^3/uL (0.4-5.4); Lymphocytes % (auto) 18.5 % (10.0-50.0); Mean Corpuscular Hemoglobin 31.4 pg (28.0-32.0); Mean Corpuscular Hgb Conc. 34.1 g/dL (32.0-36.0); Mean Corpuscular Volume 91.9 fL (80.0-100.0); Monocytes % (auto) 7.2 % (0.0-12.0); Neutrophils # (auto) 9.9 10 ^3/uL (1.6-8.6); Neutrophils % (auto) 74.1 % (37.0-80.0); Nucleated Red Blood Cells % 0.1 %; Platelet Count (auto) 345 10^3/uL (140-450); Red Blood Cells 4.29 10^6/uL (4.5-5.90); Red Cell Distribution Width 14.3 % (11.8-14.3); White Blood Cell 13.4 10^3/uL (4.4-10.8)
[2020-08-22 06:09] LABS: Albumin 2.8 g/dL (3.4-5.0); BUN/Creatinine Ratio 23.5; Bilirubin, Total 0.4 mg/dL (0.2-1.0)
[2020-08-22] MEDS: ACCU-CHEK COMFORT CURVE STRIP VI SCH ×4 (06:57→22:17)
[2020-08-22] MEDS: glipiZIDE 5 MG TAB PO SCH (06:57)
[2020-08-22] MEDS: InsuLIN REG 1unit/0.01ml Soln (100units/ml) SC SCH ×4 (06:59→22:15)
[2020-08-22 08:39] VITALS: BP 132/76
[2020-08-22] MEDS: cefTRIAXone 1GM/50ML D5W 50 ML IV SCH (10:00)
[2020-08-22] MEDS: LISINOPRIL 10 MG TAB PO SCH (10:01)
[2020-08-22] MEDS ORDERED: IOHEXOL 300 MG/ML 100ML BOTTLE IJ ONE (11:04)
[2020-08-22 13:00] VITALS: BP 130/69
[2020-08-22 17:00] VITALS: BP 133/69
[2020-08-22 22:00] VITALS: BP 139/77
[2020-08-22] MEDS: ATORVASTATIN 20 MG TAB PO SCH (22:17)
[2020-08-22] MEDS: FAMOTIDINE 20 MG TAB PO SCH (22:17)
[2020-08-22] MEDS: TEMAZEPAM 15 MG CAP PO PRN (22:44)
[2020-08-23] MEDS: SODIUM CHLORIDE 0.9% 1,000 ML IV SCH ×2 (00:05→14:34)
[2020-08-23 05:00] VITALS: BP 101/62
[2020-08-23 05:50] LABS: Basophils # (auto) 0.1 10 ^3/uL (0-0.2); Basophils % (auto) 0.8 % (0.0-2.0); Eosinophils # (auto) 0.3 10 ^3/uL (0-0.8); Eosinophils % (auto) 2.2 % (0.0-7.0); Hematocrit 39.2 % (41.0-53.0); Hemoglobin 13.2 g/dL (13.5-17.5); Lymphocytes # (auto) 4.2 10 ^3/uL (0.4-5.4); Lymphocytes % (auto) 35.8 % (10.0-50.0); Mean Corpuscular Hgb Conc. 33.6 g/dL (32.0-36.0); Mean Corpuscular Volume 92.2 fL (80.0-100.0); Monocytes # (auto) 1.2 10 ^3/uL (0-1.3); Monocytes % (auto) 9.8 % (0.0-12.0); Neutrophils # (auto) 6.1 10 ^3/uL (1.6-8.6); Neutrophils % (auto) 51.4 % (37.0-80.0); Nucleated Red Blood Cells % 0.1 %; Platelet Count (auto) 343 10^3/uL (140-450); Red Blood Cells 4.26 10^6/uL (4.5-5.90); Red Cell Distribution Width 14.2 % (11.8-14.3); White Blood Cell 11.8 10^3/uL (4.4-10.8)
[2020-08-23 06:06] LABS: Calcium 8.8 mg/dL (8.5-10.1); Potassium 3.7 mmol/L (3.5-5.1)
[2020-08-23 06:10] LABS: BUN/Creatinine Ratio 24.5
[2020-08-23] MEDS: ACCU-CHEK COMFORT CURVE STRIP VI SCH ×4 (06:53→22:09)
[2020-08-23] MEDS: InsuLIN REG 1unit/0.01ml Soln (100units/ml) SC SCH ×4 (06:53→22:12)
[2020-08-23 08:35] VITALS: BP 144/69
[2020-08-23] MEDS: LISINOPRIL 10 MG TAB PO SCH (09:10)
[2020-08-23] MEDS: cefTRIAXone 1GM/50ML D5W 50 ML IV SCH (09:10)
[2020-08-23] MEDS: traMADol HCL 50 MG TAB PO PRN ×2 (09:53→17:38)
[2020-08-23] MEDS: MORPHINE SULF INJ 2 MG/ML SYRINGE 1ML IV PRN ×2 (11:52→20:40)
[2020-08-23 17:49] VITALS: BP 139/77
[2020-08-23 22:00] VITALS: BP 128/66
[2020-08-23] MEDS: FAMOTIDINE 20 MG TAB PO SCH (22:09)
[2020-08-23] MEDS: ATORVASTATIN 20 MG TAB PO SCH (22:09)
[2020-08-24] MEDS: SODIUM CHLORIDE 0.9% 1,000 ML IV SCH ×2 (02:45→17:20)
[2020-08-24] MEDS: MORPHINE SULF INJ 2 MG/ML SYRINGE 1ML IV PRN ×3 (04:04→21:31)
[2020-08-24 05:00] VITALS: BP 155/84
[2020-08-24] MEDS: ACCU-CHEK COMFORT CURVE STRIP VI SCH ×4 (06:18→21:41)
[2020-08-24] MEDS: InsuLIN REG 1unit/0.01ml Soln (100units/ml) SC SCH ×4 (06:45→21:42)
[2020-08-24] MEDS ORDERED: ceFAZolin 1GM/50ML 50 ML IV ONE (06:54)
[2020-08-24 07:15] LABS: INR 1.04 (0.9-1.15)
[2020-08-24] MEDS ORDERED: IOHEXOL 300 MG/ML 100ML BOTTLE IJ ONE (07:22)
[2020-08-24] MEDS ORDERED: LIDOCAINE 2% JELLY 11ml (GLYDO) ONE (07:23)
[2020-08-24] MEDS ORDERED: HYDROmorphone HCL 2 MG/ML VL ONE (09:26)
[2020-08-24] MEDS ORDERED: BELLADONNA ALKAL/OPIUM (16.2/30MG) RECT SUPP PR ONE (09:28)
[2020-08-24] MEDS ORDERED: ONDANSETRON HCL 4 MG/2 ML VIAL IV PRN (10:00)
[2020-08-24] MEDS ORDERED: HYDROmorphone HCL 2 MG/ML VL IV PRN (10:00)
[2020-08-24] MEDS ORDERED: ACCU-CHEK COMFORT CURVE STRIP VI ONE (10:00)
[2020-08-24] MEDS: LISINOPRIL 10 MG TAB PO SCH (10:00)
[2020-08-24] MEDS: BELLADONNA ALKAL/OPIUM (16.2/30MG) RECT SUPP PR SCH (10:00)
[2020-08-24 10:33] VITALS: BP 161/91
[2020-08-24 10:49] VITALS: BP 134/80
[2020-08-24] MEDS: cefTRIAXone 1GM/50ML D5W 50 ML IV SCH (10:57)
[2020-08-24 17:05] VITALS: BP 146/83
[2020-08-24] MEDS: FAMOTIDINE 20 MG TAB PO SCH (21:31)
[2020-08-24] MEDS: ATORVASTATIN 20 MG TAB PO SCH (21:31)
[2020-08-24 22:00] VITALS: BP 149/78
[2020-08-24] MEDS: traMADol HCL 50 MG TAB PO PRN (22:55)
[2020-08-25] MEDS: TEMAZEPAM 15 MG CAP PO PRN (00:02)
[2020-08-25] MEDS: MORPHINE SULF INJ 2 MG/ML SYRINGE 1ML IV PRN ×2 (04:28→09:12)
[2020-08-25 05:00] VITALS: BP 127/79
[2020-08-25 05:08] LABS: Basophils # (auto) 0.1 10 ^3/uL (0-0.2); Basophils % (auto) 0.3 % (0.0-2.0); Eosinophils # (auto) 0 10 ^3/uL (0-0.8); Eosinophils % (auto) 0.1 % (0.0-7.0); Hematocrit 39.9 % (41.0-53.0); Hemoglobin 13.3 g/dL (13.5-17.5); Lymphocytes # (auto) 2.6 10 ^3/uL (0.4-5.4); Mean Corpuscular Hgb Conc. 33.4 g/dL (32.0-36.0); Mean Corpuscular Volume 92.8 fL (80.0-100.0); Monocytes # (auto) 1.5 10 ^3/uL (0-1.3); Monocytes % (auto) 9.3 % (0.0-12.0); Neutrophils # (auto) 12.1 10 ^3/uL (1.6-8.6); Neutrophils % (auto) 74.3 % (37.0-80.0); Nucleated Red Blood Cells % 0.1 %; Platelet Count (auto) 366 10^3/uL (140-450); Red Cell Distribution Width 13.9 % (11.8-14.3); White Blood Cell 16.3 10^3/uL (4.4-10.8)
[2020-08-25] MEDS: SODIUM CHLORIDE 0.9% 1,000 ML IV SCH ×2 (05:25→17:20)
[2020-08-25 05:28] LABS: BUN/Creatinine Ratio 17.6; Calcium 8.9 mg/dL (8.5-10.1); Potassium 4.3 mmol/L (3.5-5.1)
[2020-08-25] MEDS: ACCU-CHEK COMFORT CURVE STRIP VI SCH ×4 (06:04→21:34)
[2020-08-25] MEDS: InsuLIN REG 1unit/0.01ml Soln (100units/ml) SC SCH ×4 (06:05→22:05)
[2020-08-25 09:00] VITALS: BP 146/71
[2020-08-25] MEDS: BELLADONNA ALKAL/OPIUM (16.2/30MG) RECT SUPP PR SCH (09:17)
[2020-08-25] MEDS: cefTRIAXone 1GM/50ML D5W 50 ML IV SCH (09:21)
[2020-08-25] MEDS: LISINOPRIL 10 MG TAB PO SCH (09:25)
[2020-08-25] MEDS ORDERED: PHENAZOPYRIDINE HCL 100 MG TAB PO ONE (10:45)
[2020-08-25] MEDS ORDERED: HYDROmorphone HCL 2 MG/ML VL IV PRN (10:45)
[2020-08-25] MEDS ORDERED: MILK OF MAGNESIA 30ML SUSP PO ONE (10:45)
[2020-08-25] MEDS: PHENAZOPYRIDINE HCL 100 MG TAB PO SCH ×2 (12:00→17:16)
[2020-08-25 13:31] VITALS: BP 118/56
[2020-08-25 16:47] VITALS: BP 158/86
[2020-08-25] MEDS: ATORVASTATIN 20 MG TAB PO SCH (21:34)
[2020-08-25] MEDS: FAMOTIDINE 20 MG TAB PO SCH (21:34)
[2020-08-25 22:00] VITALS: BP 124/63
[2020-08-26 05:00] VITALS: BP 124/69
[2020-08-26] MEDS: ACCU-CHEK COMFORT CURVE STRIP VI SCH ×4 (06:25→21:15)
[2020-08-26] MEDS: InsuLIN REG 1unit/0.01ml Soln (100units/ml) SC SCH ×4 (06:26→21:15)
[2020-08-26 06:50] LABS: Anion Gap 6 (5-15); BUN/Creatinine Ratio 26.5; Blood Urea Nitrogen 30 mg/dL (7-18); Calcium 8.4 mg/dL (8.5-10.1); Carbon Dioxide 26 mmol/L (21-32); Chloride 108 mmol/L (98-107); GFR African American 79 mL/min; GFR Non-African American 65 mL/min; Glucose 188 mg/dL (74-106); Potassium 4.3 mmol/L (3.5-5.1); Sodium 140 mmol/L (136-145)
[2020-08-26] MEDS: SODIUM CHLORIDE 0.9% 1,000 ML IV SCH ×2 (07:01→11:05)
[2020-08-26 07:29] LABS: Basophils # (auto) 0.1 10 ^3/uL (0-0.2); Basophils % (auto) 0.5 % (0.0-2.0); Eosinophils # (auto) 0.3 10 ^3/uL (0-0.8); Eosinophils % (auto) 2.9 % (0.0-7.0); Hematocrit 38.9 % (41.0-53.0); Hemoglobin 12.8 g/dL (13.5-17.5); Lymphocytes # (auto) 3.9 10 ^3/uL (0.4-5.4); Lymphocytes % (auto) 34.4 % (10.0-50.0); Mean Corpuscular Hemoglobin 30.4 pg (28.0-32.0); Mean Corpuscular Hgb Conc. 32.8 g/dL (32.0-36.0); Mean Corpuscular Volume 92.7 fL (80.0-100.0); Monocytes # (auto) 1.3 10 ^3/uL (0-1.3); Monocytes % (auto) 11.6 % (0.0-12.0); Neutrophils # (auto) 5.8 10 ^3/uL (1.6-8.6); Neutrophils % (auto) 50.6 % (37.0-80.0); Nucleated Red Blood Cells % 0.1 %; Platelet Count (auto) 316 10^3/uL (140-450); White Blood Cell 11.4 10^3/uL (4.4-10.8)
[2020-08-26] MEDS: traMADol HCL 50 MG TAB PO PRN (07:41)
[2020-08-26] MEDS: cefTRIAXone 1GM/50ML D5W 50 ML IV SCH (08:28)
[2020-08-26] MEDS: PHENAZOPYRIDINE HCL 100 MG TAB PO SCH ×3 (08:28→18:04)
[2020-08-26] MEDS: LISINOPRIL 10 MG TAB PO SCH (09:45)
[2020-08-26] MEDS: BELLADONNA ALKAL/OPIUM (16.2/30MG) RECT SUPP PR SCH (09:48)
[2020-08-26] MEDS ORDERED: DOCUSATE SOD 100 MG CAP PO ONE (10:15)
[2020-08-26] MEDS ORDERED: LACTULOSE 20Gm/30ML SOLN PO ONE (10:15)
[2020-08-26 13:00] VITALS: BP 129/77
[2020-08-26] MEDS ORDERED: POLYSOL2 EACHEYE (15:29)
[2020-08-26] MEDS ORDERED: BRIM0.2S2 OP (15:29)
[2020-08-26 17:00] VITALS: BP 136/74
[2020-08-26] MEDS: HYDROmorphone HCL 2 MG/ML VL IV PRN (19:59)
[2020-08-26] MEDS: ATORVASTATIN 20 MG TAB PO SCH (21:14)
[2020-08-26] MEDS: FAMOTIDINE 20 MG TAB PO SCH (21:14)
[2020-08-26 22:00] VITALS: BP 139/80
[2020-08-27] MEDS: traMADol HCL 50 MG TAB PO PRN ×3 (00:09→16:53)
[2020-08-27 05:17] LABS: Basophils # (auto) 0.1 10 ^3/uL (0-0.2); Basophils % (auto) 0.6 % (0.0-2.0); Eosinophils # (auto) 0.4 10 ^3/uL (0-0.8); Eosinophils % (auto) 3.6 % (0.0-7.0); Hematocrit 40.2 % (41.0-53.0); Lymphocytes # (auto) 3.9 10 ^3/uL (0.4-5.4); Lymphocytes % (auto) 33.6 % (10.0-50.0); Mean Corpuscular Hemoglobin 30.3 pg (28.0-32.0); Mean Corpuscular Hgb Conc. 32.4 g/dL (32.0-36.0); Mean Corpuscular Volume 93.6 fL (80.0-100.0); Monocytes # (auto) 1.4 10 ^3/uL (0-1.3); Neutrophils # (auto) 5.8 10 ^3/uL (1.6-8.6); Neutrophils % (auto) 50.2 % (37.0-80.0); Nucleated Red Blood Cells % 0.1 %; Platelet Count (auto) 320 10^3/uL (140-450); Red Cell Distribution Width 14.2 % (11.8-14.3); White Blood Cell 11.5 10^3/uL (4.4-10.8)
[2020-08-27] MEDS: SODIUM CHLORIDE 0.9% 1,000 ML IV SCH (05:21)
[2020-08-27 05:33] LABS: BUN/Creatinine Ratio 21.3; Calcium 8.6 mg/dL (8.5-10.1); Potassium 3.9 mmol/L (3.5-5.1)
[2020-08-27 05:38] VITALS: BP 125/70
[2020-08-27] MEDS: HYDROmorphone HCL 2 MG/ML VL IV PRN (05:39)
[2020-08-27] MEDS: ACCU-CHEK COMFORT CURVE STRIP VI SCH ×4 (06:37→21:31)
[2020-08-27] MEDS: InsuLIN REG 1unit/0.01ml Soln (100units/ml) SC SCH ×4 (06:38→21:31)
[2020-08-27] MEDS: PHENAZOPYRIDINE HCL 100 MG TAB PO SCH ×3 (08:24→18:12)
[2020-08-27] MEDS: cefTRIAXone 1GM/50ML D5W 50 ML IV SCH (08:25)
[2020-08-27 08:49] VITALS: BP 128/68
[2020-08-27] MEDS: LISINOPRIL 10 MG TAB PO SCH (09:13)
[2020-08-27 12:49] VITALS: BP 138/71
[2020-08-27 16:57] VITALS: BP 126/71
[2020-08-27] MEDS: ATORVASTATIN 20 MG TAB PO SCH (21:30)
[2020-08-27] MEDS: FAMOTIDINE 20 MG TAB PO SCH (21:30)
[2020-08-27 22:00] VITALS: BP 110/77
[2020-08-28] MEDS: SODIUM CHLORIDE 0.9% 1,000 ML IV SCH (02:15)
[2020-08-28 05:00] VITALS: BP 121/64
[2020-08-28] MEDS: ACCU-CHEK COMFORT CURVE STRIP VI SCH ×2 (06:03→12:28)
[2020-08-28] MEDS: InsuLIN REG 1unit/0.01ml Soln (100units/ml) SC SCH ×2 (06:15→12:27)
[2020-08-28 08:32] VITALS: BP 125/69
[2020-08-28] MEDS: PHENAZOPYRIDINE HCL 100 MG TAB PO SCH ×2 (08:55→11:52)
[2020-08-28] MEDS: cefTRIAXone 1GM/50ML D5W 50 ML IV SCH (08:55)
[2020-08-28] MEDS: LISINOPRIL 10 MG TAB PO SCH (08:55)
[2020-08-28 11:17] VITALS: BP 125/69
[2020-08-28 12:30] VITALS: BP 134/71
[2020-08-28] MEDS: traMADol HCL 50 MG TAB PO PRN (14:22)
== END 2020-08-28 15:15 | disposition home health service (06) | DRG 660 ==
LOC: EDBD 06:08 → ER 06:08 → CENTRAL 06:09 → ER 10:40
PROVIDERS: ADMIT Internal Medicine; ATTEND Internal Medicine
PROC: 0T9030Z Drainage of Right Kidney with Drainage Device, Percutaneous Approach (ICD-10-PCS; 2020-08-18)
PROC: BT111ZZ Fluoroscopy of Right Kidney using Low Osmolar Contrast (ICD-10-PCS; 2020-08-18)
PROC: BT1D1ZZ Fluoroscopy of Right Kidney, Ureter and Bladder using Low Osmolar Contrast (ICD-10-PCS; 2020-08-18)
PROC: 0TF6XZZ Fragmentation in Right Ureter, External Approach (ICD-10-PCS; principal; 2020-08-21 12:56)
PROC: 0T768DZ Dilation of Right Ureter with Intraluminal Device, Via Natural or Artificial Opening Endoscopic (ICD-10-PCS; 2020-08-24)
PROC: BT1D1ZZ Fluoroscopy of Right Kidney, Ureter and Bladder using Low Osmolar Contrast (ICD-10-PCS; 2020-08-24)
PROC: 0TF68ZZ Fragmentation in Right Ureter, Via Natural or Artificial Opening Endoscopic (ICD-10-PCS; 2020-08-24)
DX: N13.2 Hydronephrosis with renal and ureteral calculous obstruction (principal); E44.0 Moderate protein-calorie malnutrition; I13.0 Hypertensive heart and chronic kidney disease with heart failure and stage 1 through stage 4 chronic kidney disease, or unspecified chronic kidney disease; N13.8 Other obstructive and reflux uropathy; I50.32 Chronic diastolic (congestive) heart failure; N17.0 Acute kidney failure with tubular necrosis; D63.8 Anemia in other chronic diseases classified elsewhere; E11.21 Type 2 diabetes mellitus with diabetic nephropathy; Z20.822 Contact with and (suspected) exposure to COVID-19; E88.09 Other disorders of plasma-protein metabolism, not elsewhere classified; R31.9 Hematuria, unspecified; R04.0 Epistaxis; N40.1 Benign prostatic hyperplasia with lower urinary tract symptoms; E11.65 Type 2 diabetes mellitus with hyperglycemia; I25.10 Atherosclerotic heart disease of native coronary artery without angina pectoris; M81.0 Age-related osteoporosis without current pathological fracture; E11.22 Type 2 diabetes mellitus with diabetic chronic kidney disease; K57.30 Diverticulosis of large intestine without perforation or abscess without bleeding; E78.5 Hyperlipidemia, unspecified; N28.1 Cyst of kidney, acquired; M19.90 Unspecified osteoarthritis, unspecified site; N18.9 Chronic kidney disease, unspecified; Z68.26 Body mass index [BMI] 26.0-26.9, adult; Z87.442 Personal history of urinary calculi; Z82.49 Family history of ischemic heart disease and other diseases of the circulatory system; Z95.5 Presence of coronary angioplasty implant and graft
CPT/HCPCS: 10022; 36415; 71045; 71250; 74018; 74176; 74425; 76001; 76942; 80048; 80053; 81001; 82962; 83036; 84154; 84443; 84484; 85025; 85610; 85730; 86850; 86900; 86901; 87086; 87426; 96361; 96365; 96375; 99152; 99153; C1729; G0378; J0690; J0696; J1100; J1815; J2250; J2405; J2704; J3490

== ENCOUNTER 2020-09-03 05:25 | Inpatient (IN) | payer OTHER, MEDICAID ==
[~2020-09-03] VITALS: Ht 167.6 cm; Wt 86.0 kg
[~2020-09-03 05:25] MED LIST changes: +BRIM0.2S2 OP; -CHLO25TA2 PO; -ERGO1CAP12 PO; -LISI-648 PO; +LISI-716 PO; +POLYSOL2 EACHEYE; +TRAM50TA2 PO
[2020-09-03] MEDS ORDERED: MORPHINE SULFATE 4 MG/ML SYR/VIAL IV ONE (06:45)
[2020-09-03] MEDS ORDERED: SODIUM CHLORIDE 0.9% 1,000 ML IV ONE (06:45)
[2020-09-03] MEDS ORDERED: METOCLOPRAMIDE HCL 5MG/ml INJ 2ml VIAL IV ONE (06:45)
[2020-09-03 07:14] LABS: Basophils # (auto) 0.1 10 ^3/uL (0-0.2); Basophils % (auto) 0.4 % (0.0-2.0); Eosinophils # (auto) 0.3 10 ^3/uL (0-0.8); Eosinophils % (auto) 1.3 % (0.0-7.0); Hematocrit 41.6 % (41.0-53.0); Hemoglobin 13.5 g/dL (13.5-17.5); Lymphocytes # (auto) 1.9 10 ^3/uL (0.4-5.4); Lymphocytes % (auto) 9.7 % (10.0-50.0); Mean Corpuscular Hemoglobin 30.2 pg (28.0-32.0); Mean Corpuscular Hgb Conc. 32.5 g/dL (32.0-36.0); Mean Corpuscular Volume 92.7 fL (80.0-100.0); Monocytes # (auto) 1.5 10 ^3/uL (0-1.3); Monocytes % (auto) 7.5 % (0.0-12.0); Neutrophils # (auto) 15.9 10 ^3/uL (1.6-8.6); Neutrophils % (auto) 81.1 % (37.0-80.0); Nucleated Red Blood Cells % 0.1 %; Platelet Count (auto) 361 10^3/uL (140-450); Red Blood Cells 4.49 10^6/uL (4.5-5.90); Red Cell Distribution Width 13.7 % (11.8-14.3); White Blood Cell 19.6 10^3/uL (4.4-10.8)
[2020-09-03 07:23] LABS: INR 1.05 (0.9-1.15); Partial Thromboplastin Time 29.6 sec (23.0-31.2)
[2020-09-03 07:24] LABS: Amylase 20 U/L (25-115); Anion Gap 8 (5-15); Blood Urea Nitrogen 17 mg/dL (7-18); Calcium 9.1 mg/dL (8.5-10.1); Carbon Dioxide 25 mmol/L (21-32); Chloride 103 mmol/L (98-107); Glucose 211 mg/dL (74-106); Lipase 44 U/L (73-393); Magnesium 2.4 mg/dL (1.6-2.6); Potassium 4.2 mmol/L (3.5-5.1); Sodium 136 mmol/L (136-145)
[2020-09-03 07:31] LABS: Urine Bacteria NONE SEEN /hpf (None Seen); Urine Blood 3+ /uL (Negative); Urine Mucus FEW (None Seen); Urine Specific Gravity 1.018 (1.001-1.035); Urine WBC 60 /hpf (0 - 3)
[2020-09-03 07:31] LABS: Alanine Aminotransferase 24 U/L (16-61); Alkaline Phosphatase 117 U/L (45-117); Aspartate Aminotransferase 30 U/L (15-37); BUN/Creatinine Ratio 15.3; Bilirubin, Total 0.6 mg/dL (0.2-1.0); GFR African American 81 mL/min; GFR Non-African American 67 mL/min
[2020-09-03 08:14] LABS: Albumin 2.5 g/dL (3.4-5.0)
[2020-09-03] MEDS ORDERED: MORPHINE SULF INJ 2 MG/ML SYRINGE 1ML IV PRN (08:30)
[2020-09-03] MEDS ORDERED: ACETAMINOPHEN 500 MG TAB PO PRN (08:30)
[2020-09-03] MEDS ORDERED: NITROGLYCERIN 0.4 MG SL TAB SL PRN (08:30)
[2020-09-03] MEDS ORDERED: ONDANSETRON HCL 4 MG/2 ML VIAL IV PRN (08:30)
[2020-09-03] MEDS ORDERED: SODIUM CHLORIDE 0.9% 1,000 ML IV SCH (08:30)
[2020-09-03] MEDS: cefTRIAXone 1GM/50ML D5W 50 ML IV SCH (09:59)
[2020-09-03] MEDS ORDERED: FAMOTIDINE 20 MG TAB PO SCH (10:00)
[2020-09-03] MEDS ORDERED: cefTRIAXone 1GM/50ML D5W 50 ML IV SCH (10:12)
[2020-09-03] MEDS: DOCUSATE SOD 100 MG CAP PO SCH ×4 (10:15→23:00)
[2020-09-03] MEDS: LISINOPRIL 10 MG TAB PO SCH (10:17)
[2020-09-03 13:00] VITALS: BP 163/79
[2020-09-03] MEDS ORDERED: METOPROLOL TARTRATE 25 MG TAB PO ONE (14:15)
[2020-09-03] MEDS ORDERED: DEXTROSE (50%) 50ML SYRG IV PRN (14:15)
[2020-09-03] MEDS ORDERED: LABETALOL HCL 5 MG/ML 4ML SYRINGE IV PRN (14:15)
[2020-09-03 15:13] LABS: Lactic Acid w/Reflex 2.2 mmol/L (0.4-2.0)
[2020-09-03] MEDS: ACCU-CHEK COMFORT CURVE STRIP VI SCH ×2 (16:43→21:30)
[2020-09-03] MEDS: TAMSULOSIN HYDROCHLORIDE 0.4 MG CAP PO SCH (16:43)
[2020-09-03] MEDS: InsuLIN REG 1unit/0.01ml Soln (100units/ml) SC SCH ×4 (16:44→22:59)
[2020-09-03 17:00] VITALS: BP 140/73
[2020-09-03] MEDS: METOPROLOL TARTRATE 25 MG TAB PO SCH ×3 (21:30→23:00)
[2020-09-03] MEDS: MORPHINE SULF INJ 2 MG/ML SYRINGE 1ML IV PRN (21:31)
[2020-09-03 21:56] VITALS: BP 136/77
[2020-09-04] VITALS (21 sets, daily range): BP systolic 85–150; BP diastolic 44–74
[2020-09-04] MEDS: ACCU-CHEK COMFORT CURVE STRIP VI SCH ×4 (05:23→22:00)
[2020-09-04] MEDS: InsuLIN REG 1unit/0.01ml Soln (100units/ml) SC SCH ×4 (05:26→22:34)
[2020-09-04 06:05] LABS: Basophils # (auto) 0.1 10 ^3/uL (0-0.2); Basophils % (auto) 0.6 % (0.0-2.0); Eosinophils # (auto) 0.2 10 ^3/uL (0-0.8); Eosinophils % (auto) 1.5 % (0.0-7.0); Hemoglobin 12.7 g/dL (13.5-17.5); Lymphocytes # (auto) 2.2 10 ^3/uL (0.4-5.4); Lymphocytes % (auto) 13.9 % (10.0-50.0); Mean Corpuscular Hemoglobin 30.6 pg (28.0-32.0); Mean Corpuscular Hgb Conc. 33.3 g/dL (32.0-36.0); Mean Corpuscular Volume 91.9 fL (80.0-100.0); Monocytes # (auto) 1.4 10 ^3/uL (0-1.3); Monocytes % (auto) 8.5 % (0.0-12.0); Neutrophils % (auto) 75.5 % (37.0-80.0); Nucleated Red Blood Cells % 0.1 %; Platelet Count (auto) 354 10^3/uL (140-450); Red Blood Cells 4.14 10^6/uL (4.5-5.90); Red Cell Distribution Width 13.7 % (11.8-14.3); White Blood Cell 15.9 10^3/uL (4.4-10.8)
[2020-09-04 06:32] LABS: Potassium 3.7 mmol/L (3.5-5.1)
[2020-09-04 06:38] LABS: Calcium 8.6 mg/dL (8.5-10.1)
[2020-09-04] MEDS: cefTRIAXone 1GM/50ML D5W 50 ML IV SCH (09:24)
[2020-09-04] MEDS: DOCUSATE SOD 100 MG CAP PO SCH ×2 (10:39→22:00)
[2020-09-04] MEDS: METOPROLOL TARTRATE 25 MG TAB PO SCH ×2 (10:40→22:00)
[2020-09-04] MEDS: LISINOPRIL 10 MG TAB PO SCH (10:41)
[2020-09-04] MEDS: SODIUM CHLORIDE 0.9% 1,000 ML IV SCH ×2 (10:42→23:14)
[2020-09-04] MEDS ORDERED: LORazepam 2MG/ML-1ML VIAL IV ONE (15:15)
[2020-09-04] MEDS ORDERED: HALOPERIDOL LACTATE 5 MG/ML INJ VIAL IM ONE (16:30)
[2020-09-04] MEDS ORDERED: HALOPERIDOL LACTATE 5 MG/ML INJ VIAL ONE (16:31)
[2020-09-04] MEDS ORDERED: LORazepam 2MG/ML-1ML VIAL IM ONE (17:30)
[2020-09-04] MEDS: TAMSULOSIN HYDROCHLORIDE 0.4 MG CAP PO SCH (18:00)
[2020-09-04] MEDS ORDERED: SUCCINYLCHOLINE CHLORIDE 20 MG/ML 10ML VIAL IV ONE (18:14)
[2020-09-04] MEDS ORDERED: MIDAZOLAM HCL 1MG/1ML-2 ML VIAL ONE ×2 (18:20→19:03)
[2020-09-04] MEDS ORDERED: fentaNYL CITRATE 100 MCG/2 ML VL ONE (18:20)
[2020-09-04] MEDS ORDERED: MEPERIDINE HCL (50 MG/ML) 1 ML VIAL ONE (18:20)
[2020-09-04] MEDS ORDERED: DexAMETHasone SOD PHOS 10MG/1ML VIAL INJ ONE (18:41)
[2020-09-04] MEDS ORDERED: ETOMIDATE (2MG/ML) 20ML VIAL IV ONE (18:46)
[2020-09-04] MEDS ORDERED: fentaNYL Drip 2500mCg/250mlNS 250 ML IV SCH (19:00)
[2020-09-04] MEDS ORDERED: LABETALOL HCL 5 MG/ML 4ML SYRINGE IV PRN (19:15)
[2020-09-04] MEDS ORDERED: ACCU-CHEK COMFORT CURVE STRIP VI ONE (19:15)
[2020-09-04] MEDS ORDERED: ePHEDrine SULFATE 50 MG/ML AMP IV PRN (19:15)
[2020-09-04] MEDS ORDERED: MIDAZOLAM HCL 1MG/1ML-2 ML VIAL IV PRN (19:15)
[2020-09-04] MEDS ORDERED: fentaNYL CITRATE 100 MCG/2 ML VL IV PRN (19:15)
[2020-09-04] MEDS ORDERED: ONDANSETRON HCL 4 MG/2 ML VIAL IV PRN (19:15)
[2020-09-04] MEDS ORDERED: MORPHINE SULFATE 4 MG/ML SYR/VIAL IV PRN (19:15)
[2020-09-04] MEDS ORDERED: HYDROmorphone HCL 2 MG/ML VL IV PRN (19:15)
[2020-09-04] MEDS: PROPOFOL 100 ML IV SCH (20:32)
[2020-09-04] MEDS: NOREPINEPHRINE 8 MG/250ML KIT 250 ML IV SCH (21:30)
[2020-09-05] VITALS (86 sets, daily range): BP systolic 92–135; BP diastolic 43–92
[2020-09-05 04:48] LABS: Basophils # (auto) 0 10 ^3/uL (0-0.2); Basophils % (auto) 0.1 % (0.0-2.0); Eosinophils # (auto) 0 10 ^3/uL (0-0.8); Hematocrit 38.6 % (41.0-53.0); Hemoglobin 12.1 g/dL (13.5-17.5); Lymphocytes # (auto) 1.8 10 ^3/uL (0.4-5.4); Lymphocytes % (auto) 8.6 % (10.0-50.0); Mean Corpuscular Hemoglobin 29.5 pg (28.0-32.0); Mean Corpuscular Hgb Conc. 31.3 g/dL (32.0-36.0); Mean Corpuscular Volume 94.2 fL (80.0-100.0); Monocytes # (auto) 0.4 10 ^3/uL (0-1.3); Monocytes % (auto) 2.2 % (0.0-12.0); Neutrophils # (auto) 18.2 10 ^3/uL (1.6-8.6); Neutrophils % (auto) 89.1 % (37.0-80.0); Platelet Count (auto) 418 10^3/uL (140-450); Red Blood Cells 4.09 10^6/uL (4.5-5.90); Red Cell Distribution Width 13.8 % (11.8-14.3); White Blood Cell 20.5 10^3/uL (4.4-10.8)
[2020-09-05 05:10] LABS: BUN/Creatinine Ratio 23.9; Calcium 8.4 mg/dL (8.5-10.1)
[2020-09-05] MEDS: ACCU-CHEK COMFORT CURVE STRIP VI SCH ×4 (06:38→21:08)
[2020-09-05] MEDS: InsuLIN REG 1unit/0.01ml Soln (100units/ml) SC SCH ×4 (06:38→21:08)
[2020-09-05] MEDS: cefTRIAXone 1GM/50ML D5W 50 ML IV SCH (09:00)
[2020-09-05] MEDS: LISINOPRIL 10 MG TAB PO SCH (09:39)
[2020-09-05] MEDS: DOCUSATE SOD 100 MG CAP PO SCH ×2 (09:39→21:06)
[2020-09-05] MEDS: METOPROLOL TARTRATE 25 MG TAB PO SCH (09:39)
[2020-09-05] MEDS: SODIUM CHLORIDE 0.9% 1,000 ML IV SCH (12:49)
[2020-09-05] MEDS ORDERED: FUROSEMIDE 20 MG/2 ML VIAL IV ONE (14:00)
[2020-09-05] MEDS: PROPOFOL 100 ML IV SCH (18:29)
[2020-09-05] MEDS: TAMSULOSIN HYDROCHLORIDE 0.4 MG CAP PO SCH (18:29)
[2020-09-05] MEDS: NOREPINEPHRINE 8 MG/250ML KIT 250 ML IV SCH (18:30)
[2020-09-05] MEDS: LORazepam 2MG/ML-1ML VIAL IV PRN (20:26)
[2020-09-06] VITALS (15 sets, daily range): BP systolic 94–138; BP diastolic 43–81
[2020-09-06] MEDS: ACCU-CHEK COMFORT CURVE STRIP VI SCH ×4 (06:26→23:09)
[2020-09-06] MEDS: InsuLIN REG 1unit/0.01ml Soln (100units/ml) SC SCH ×4 (06:26→23:24)
[2020-09-06] MEDS: MORPHINE SULF INJ 2 MG/ML SYRINGE 1ML IV PRN (07:03)
[2020-09-06] MEDS: DOCUSATE SOD 100 MG CAP PO SCH ×2 (08:12→23:09)
[2020-09-06] MEDS: cefTRIAXone 1GM/50ML D5W 50 ML IV SCH (08:13)
[2020-09-06 09:53] LABS: Basophils # (auto) 0.1 10 ^3/uL (0-0.2); Basophils % (auto) 0.4 % (0.0-2.0); Eosinophils # (auto) 0.2 10 ^3/uL (0-0.8); Eosinophils % (auto) 1.3 % (0.0-7.0); Hematocrit 38.7 % (41.0-53.0); Hemoglobin 12.5 g/dL (13.5-17.5); Lymphocytes # (auto) 2.6 10 ^3/uL (0.4-5.4); Lymphocytes % (auto) 19.9 % (10.0-50.0); Mean Corpuscular Hemoglobin 29.9 pg (28.0-32.0); Mean Corpuscular Hgb Conc. 32.4 g/dL (32.0-36.0); Mean Corpuscular Volume 92.2 fL (80.0-100.0); Monocytes # (auto) 1.2 10 ^3/uL (0-1.3); Monocytes % (auto) 8.8 % (0.0-12.0); Neutrophils # (auto) 9.1 10 ^3/uL (1.6-8.6); Neutrophils % (auto) 69.6 % (37.0-80.0); Nucleated Red Blood Cells % 0.2 %; Platelet Count (auto) 412 10^3/uL (140-450); Red Blood Cells 4.19 10^6/uL (4.5-5.90); Red Cell Distribution Width 13.7 % (11.8-14.3); White Blood Cell 13.1 10^3/uL (4.4-10.8)
[2020-09-06 10:00] LABS: Calcium 8.8 mg/dL (8.5-10.1); Potassium 3.6 mmol/L (3.5-5.1)
[2020-09-06] MEDS: LORazepam 2MG/ML-1ML VIAL IV PRN (10:31)
[2020-09-06] MEDS: HYDROcodone-ACET 5/325MG TAB PO PRN ×2 (10:32→17:37)
[2020-09-06] MEDS: Glucerna Carbsteady SHAKE Vanilla 8oz PO SCH (17:36)
[2020-09-06] MEDS: TAMSULOSIN HYDROCHLORIDE 0.4 MG CAP PO SCH (17:36)
[2020-09-07] MEDS: HYDROcodone-ACET 5/325MG TAB PO PRN (02:04)
[2020-09-07] MEDS: LORazepam 2MG/ML-1ML VIAL IV PRN (02:52)
[2020-09-07 05:00] VITALS: BP 112/67
[2020-09-07] MEDS: glipiZIDE 5 MG TAB PO SCH (06:09)
[2020-09-07] MEDS: ACCU-CHEK COMFORT CURVE STRIP VI SCH ×4 (06:10→23:07)
[2020-09-07] MEDS: InsuLIN REG 1unit/0.01ml Soln (100units/ml) SC SCH ×4 (06:11→23:08)
[2020-09-07 06:29] LABS: Basophils # (auto) 0.1 10 ^3/uL (0-0.2); Basophils % (auto) 0.6 % (0.0-2.0); Eosinophils # (auto) 0.3 10 ^3/uL (0-0.8); Eosinophils % (auto) 2.7 % (0.0-7.0); Hematocrit 38.3 % (41.0-53.0); Hemoglobin 12.5 g/dL (13.5-17.5); Lymphocytes # (auto) 2.8 10 ^3/uL (0.4-5.4); Lymphocytes % (auto) 25.3 % (10.0-50.0); Mean Corpuscular Hgb Conc. 32.6 g/dL (32.0-36.0); Monocytes # (auto) 1.1 10 ^3/uL (0-1.3); Monocytes % (auto) 9.9 % (0.0-12.0); Neutrophils # (auto) 6.8 10 ^3/uL (1.6-8.6); Neutrophils % (auto) 61.5 % (37.0-80.0); Platelet Count (auto) 412 10^3/uL (140-450); Red Blood Cells 4.16 10^6/uL (4.5-5.90); Red Cell Distribution Width 13.3 % (11.8-14.3); White Blood Cell 11.1 10^3/uL (4.4-10.8)
[2020-09-07 06:44] LABS: Potassium 3.7 mmol/L (3.5-5.1)
[2020-09-07 06:51] LABS: Calcium 8.4 mg/dL (8.5-10.1)
[2020-09-07 07:00] VITALS: BP 127/78
[2020-09-07] MEDS: Glucerna Carbsteady SHAKE Vanilla 8oz PO SCH ×3 (08:00→18:10)
[2020-09-07] MEDS: cefTRIAXone 1GM/50ML D5W 50 ML IV SCH (09:18)
[2020-09-07] MEDS: DOCUSATE SOD 100 MG CAP PO SCH ×2 (09:29→23:06)
[2020-09-07 12:00] VITALS: BP 130/76
[2020-09-07 17:00] VITALS: BP 133/68
[2020-09-07] MEDS: TAMSULOSIN HYDROCHLORIDE 0.4 MG CAP PO SCH (17:14)
[2020-09-07 22:04] VITALS: BP 127/72
[2020-09-08 05:07] VITALS: BP 105/51
[2020-09-08] MEDS: glipiZIDE 5 MG TAB PO SCH (06:48)
[2020-09-08] MEDS: ACCU-CHEK COMFORT CURVE STRIP VI SCH ×4 (06:48→21:10)
[2020-09-08] MEDS: InsuLIN REG 1unit/0.01ml Soln (100units/ml) SC SCH ×4 (06:49→21:41)
[2020-09-08 07:08] LABS: Basophils # (auto) 0.1 10 ^3/uL (0-0.2); Basophils % (auto) 0.5 % (0.0-2.0); Eosinophils # (auto) 0.4 10 ^3/uL (0-0.8); Hematocrit 37.4 % (41.0-53.0); Hemoglobin 12.5 g/dL (13.5-17.5); Lymphocytes # (auto) 2.7 10 ^3/uL (0.4-5.4); Lymphocytes % (auto) 22.6 % (10.0-50.0); Mean Corpuscular Hemoglobin 30.6 pg (28.0-32.0); Mean Corpuscular Hgb Conc. 33.4 g/dL (32.0-36.0); Mean Corpuscular Volume 91.5 fL (80.0-100.0); Monocytes % (auto) 8.3 % (0.0-12.0); Neutrophils # (auto) 7.7 10 ^3/uL (1.6-8.6); Neutrophils % (auto) 65.6 % (37.0-80.0); Nucleated Red Blood Cells % 0.1 %; Platelet Count (auto) 413 10^3/uL (140-450); Red Blood Cells 4.09 10^6/uL (4.5-5.90); Red Cell Distribution Width 13.4 % (11.8-14.3); White Blood Cell 11.8 10^3/uL (4.4-10.8)
[2020-09-08 07:25] LABS: Calcium 8.7 mg/dL (8.5-10.1); Potassium 3.2 mmol/L (3.5-5.1)
[2020-09-08 08:56] VITALS: BP 120/55
[2020-09-08] MEDS: DOCUSATE SOD 100 MG CAP PO SCH ×2 (09:14→21:11)
[2020-09-08] MEDS: Glucerna Carbsteady SHAKE Vanilla 8oz PO SCH ×3 (09:14→17:30)
[2020-09-08] MEDS: cefTRIAXone 1GM/50ML D5W 50 ML IV SCH (09:14)
[2020-09-08] MEDS ORDERED: POTASSIUM CHL 20 Meq TABLET PO ONE (12:00)
[2020-09-08 13:19] VITALS: BP 114/61
[2020-09-08] MEDS: TAMSULOSIN HYDROCHLORIDE 0.4 MG CAP PO SCH (17:06)
[2020-09-08 17:26] VITALS: BP 122/63
[2020-09-08 22:00] VITALS: BP 114/63
[2020-09-09 05:00] VITALS: BP 133/72
[2020-09-09] MEDS: ACCU-CHEK COMFORT CURVE STRIP VI SCH ×4 (06:39→22:00)
[2020-09-09] MEDS: glipiZIDE 5 MG TAB PO SCH (06:55)
[2020-09-09] MEDS: InsuLIN REG 1unit/0.01ml Soln (100units/ml) SC SCH ×4 (06:56→22:00)
[2020-09-09 07:07] LABS: Basophils # (auto) 0.1 10 ^3/uL (0-0.2); Hemoglobin 12.3 g/dL (13.5-17.5); Lymphocytes # (auto) 3.2 10 ^3/uL (0.4-5.4); Mean Corpuscular Volume 91.2 fL (80.0-100.0); Monocytes # (auto) 0.9 10 ^3/uL (0-1.3)
[2020-09-09 07:10] LABS: Basophils % (auto) 0.8 % (0.0-2.0); Eosinophils # (auto) 0.5 10 ^3/uL (0-0.8); Eosinophils % (auto) 4.2 % (0.0-7.0); Hematocrit 37.6 % (41.0-53.0); Lymphocytes % (auto) 25.7 % (10.0-50.0); Mean Corpuscular Hemoglobin 29.8 pg (28.0-32.0); Mean Corpuscular Hgb Conc. 32.7 g/dL (32.0-36.0); Monocytes % (auto) 7.1 % (0.0-12.0); Neutrophils # (auto) 7.8 10 ^3/uL (1.6-8.6); Neutrophils % (auto) 62.2 % (37.0-80.0); Platelet Count (auto) 485 10^3/uL (140-450); Red Blood Cells 4.12 10^6/uL (4.5-5.90); Red Cell Distribution Width 13.7 % (11.8-14.3); White Blood Cell 12.5 10^3/uL (4.4-10.8)
[2020-09-09 07:17] LABS: Calcium 8.8 mg/dL (8.5-10.1)
[2020-09-09 07:19] LABS: BUN/Creatinine Ratio 18.6
[2020-09-09 09:00] VITALS: BP 136/65
[2020-09-09] MEDS: DOCUSATE SOD 100 MG CAP PO SCH ×2 (09:53→23:22)
[2020-09-09] MEDS: levoFLOXacin 500 MG TAB PO SCH (09:53)
[2020-09-09] MEDS: Glucerna Carbsteady SHAKE Vanilla 8oz PO SCH ×2 (10:01→18:47)
[2020-09-09 13:00] VITALS: BP 122/60
[2020-09-09 17:00] VITALS: BP 123/68
[2020-09-09] MEDS: TAMSULOSIN HYDROCHLORIDE 0.4 MG CAP PO SCH (18:47)
[2020-09-09 22:53] VITALS: BP 136/78
[2020-09-10 05:18] VITALS: BP 118/70
[2020-09-10] MEDS: ACCU-CHEK COMFORT CURVE STRIP VI SCH ×4 (06:30→20:10)
[2020-09-10] MEDS: InsuLIN REG 1unit/0.01ml Soln (100units/ml) SC SCH ×4 (06:30→20:10)
[2020-09-10] MEDS: glipiZIDE 5 MG TAB PO SCH (06:30)
[2020-09-10 08:49] VITALS: BP 125/66
[2020-09-10] MEDS: DOCUSATE SOD 100 MG CAP PO SCH ×2 (10:03→20:10)
[2020-09-10] MEDS: levoFLOXacin 500 MG TAB PO SCH (10:03)
[2020-09-10 13:00] VITALS: BP 133/64
[2020-09-10] MEDS: Glucerna Carbsteady SHAKE Vanilla 8oz PO SCH ×4 (13:12→18:12)
[2020-09-10 17:05] VITALS: BP 132/62
[2020-09-10] MEDS: TAMSULOSIN HYDROCHLORIDE 0.4 MG CAP PO SCH (18:16)
[2020-09-11 02:39] VITALS: BP 134/68
[2020-09-11 06:03] VITALS: BP 145/66
[2020-09-11] MEDS: ACCU-CHEK COMFORT CURVE STRIP VI SCH (06:07)
[2020-09-11] MEDS: glipiZIDE 5 MG TAB PO SCH (06:15)
[2020-09-11] MEDS: InsuLIN REG 1unit/0.01ml Soln (100units/ml) SC SCH (06:22)
[2020-09-11] MEDS: Glucerna Carbsteady SHAKE Vanilla 8oz PO SCH (08:59)
[2020-09-11 09:00] VITALS: BP 157/68
[2020-09-11] MEDS: levoFLOXacin 500 MG TAB PO SCH (10:29)
[2020-09-11] MEDS: DOCUSATE SOD 100 MG CAP PO SCH (10:29)
== END 2020-09-11 11:30 | disposition home health service (06) | DRG 853 ==
LOC: ER 05:25 → EDBD 05:25 → TELE 08:36 → TELE-CENTR 11:11 → ICU WEST 09-04 19:58 → TELE-WESTW 09-06 16:45
PROVIDERS: ADMIT Nurse Practitioner Acute Care; ATTEND Internal Medicine
PROC: 0TC Urinary System, Extirpation (ICD-10-PCS; 2020-09-04)
PROC: 0BH17EZ Insertion of Endotracheal Airway into Trachea, Via Natural or Artificial Opening (ICD-10-PCS; 2020-09-04)
PROC: 0TP98DZ Removal of Intraluminal Device from Ureter, Via Natural or Artificial Opening Endoscopic (ICD-10-PCS; 2020-09-04)
PROC: 0T9B70Z Drainage of Bladder with Drainage Device, Via Natural or Artificial Opening (ICD-10-PCS; 2020-09-04)
PROC: 5A1935Z Respiratory Ventilation, Less than 24 Consecutive Hours (ICD-10-PCS; principal; 2020-09-04 18:22)
DX: A41.9 Sepsis, unspecified organism (principal); G92 Toxic encephalopathy; J96.00 Acute respiratory failure, unspecified whether with hypoxia or hypercapnia; N13.6 Pyonephrosis; K40.20 Bilateral inguinal hernia, without obstruction or gangrene, not specified as recurrent; N18.30 Chronic kidney disease, stage 3 unspecified; E11.22 Type 2 diabetes mellitus with diabetic chronic kidney disease; E78.5 Hyperlipidemia, unspecified; F03.90 Unspecified dementia, unspecified severity, without behavioral disturbance, psychotic disturbance, mood disturbance, and anxiety; I12.9 Hypertensive chronic kidney disease with stage 1 through stage 4 chronic kidney disease, or unspecified chronic kidney disease; R65.20 Severe sepsis without septic shock; Z20.822 Contact with and (suspected) exposure to COVID-19; N40.1 Benign prostatic hyperplasia with lower urinary tract symptoms; Z79.899 Other long term (current) drug therapy; Z82.49 Family history of ischemic heart disease and other diseases of the circulatory system; Z87.442 Personal history of urinary calculi; Z79.84 Long term (current) use of oral hypoglycemic drugs; Z93.6 Other artificial openings of urinary tract status
CPT/HCPCS: 36415; 36600; 71045; 71046; 74176; 80048; 80053; 81001; 82150; 82805; 82962; 83605; 83690; 83735; 84484; 85025; 85610; 85730; 87040; 87070; 87081; 87086; 87205; 87426; 93005; 94002; 94003; 94640; 96361; 96365; 96375; G0378; J0330; J0696; J1100; J1815; J2250; J2704

== ENCOUNTER → 2020-10-05 | Outpatient (CLI) | payer OTHER, MEDICAID ==
[2020-10-05 12:33] LABS: Urine Bacteria NONE SEEN /hpf (None Seen); Urine Blood Negative /uL (Negative); Urine Specific Gravity 1.015 (1.001-1.035); Urine WBC 121 /hpf (0 - 3); Urine WBC Clumps PRESENT /hpf (None Seen)
== END | disposition home or self-care (01) ==
LOC: LAB 11:39
PROVIDERS: ATTEND Urology
DX: N39.0 Urinary tract infection, site not specified (principal)
CPT/HCPCS: 81001; 87086

== ENCOUNTER → 2020-10-12 | Outpatient (CLI) | payer OTHER, MEDICAID ==
[2020-10-12 15:48] LABS: Urine Bacteria NONE SEEN /hpf (None Seen); Urine Blood TRACE /uL (Negative); Urine Specific Gravity 1.015 (1.001-1.035); Urine WBC 73 /hpf (0 - 3)
== END | disposition home or self-care (01) ==
LOC: LAB 15:11
PROVIDERS: ATTEND Internal Medicine Nephrology
DX: N39.0 Urinary tract infection, site not specified (principal)
CPT/HCPCS: 81001; 87086

== ENCOUNTER → 2022-08-27 | Outpatient (CLI) | payer OTHER, MEDICAID ==
[2022-08-27 07:37] LABS: Basophils # (auto) 0.1 10 ^3/uL (0-0.2); Basophils % (auto) 0.6 % (0.0-2.0); Eosinophils # (auto) 0.8 10 ^3/uL (0-0.8); Hemoglobin 14.2 g/dL (13.5-17.5); Lymphocytes # (auto) 3.9 10 ^3/uL (0.4-5.4); Lymphocytes % (auto) 29.7 % (10.0-50.0); Mean Corpuscular Hemoglobin 30.3 pg (28.0-32.0); Mean Corpuscular Hgb Conc. 33.1 g/dL (32.0-36.0); Mean Corpuscular Volume 91.4 fL (80.0-100.0); Monocytes % (auto) 7.8 % (0.0-12.0); Neutrophils # (auto) 7.3 10 ^3/uL (1.6-8.6); Neutrophils % (auto) 55.9 % (37.0-80.0); Red Blood Cells 4.71 10^6/uL (4.5-5.90); Red Cell Distribution Width 14.8 % (11.8-14.3); White Blood Cell 13.1 10^3/uL (4.4-10.8)
[2022-08-27 08:19] LABS: Potassium 3.9 mmol/L (3.5-5.1)
[2022-08-27 08:27] LABS: Albumin 2.9 g/dL (3.4-5.0); BUN/Creatinine Ratio 20.7 (10.0-20.0); Calcium 9.4 mg/dL (8.5-10.1); Free T4 (Free Thyroxine) 1.11 ng/dL (0.89-1.76); Prostate Specific Antigen 2.42 ng/mL (0.0-4.0); Total Protein 7.2 g/dL (6.4-8.2)
== END | disposition home or self-care (01) ==
LOC: LAB 06:57
PROVIDERS: ATTEND Nurse Practitioner Family
DX: I13.0 Hypertensive heart and chronic kidney disease with heart failure and stage 1 through stage 4 chronic kidney disease, or unspecified chronic kidney disease (principal); I50.9 Heart failure, unspecified; N18.9 Chronic kidney disease, unspecified; E11.21 Type 2 diabetes mellitus with diabetic nephropathy; E55.9 Vitamin D deficiency, unspecified
CPT/HCPCS: 36415; 80053; 80061; 82043; 82306; 83036; 84153; 84439; 84443; 85025

== ENCOUNTER → 2022-09-11 | Outpatient (CLI) | payer OTHER, MEDICAID ==
[2022-09-11 09:15] LABS: Albumin 3.2 g/dL (3.4-5.0); Calcium 9.3 mg/dL (8.5-10.1); Potassium 4.3 mmol/L (3.5-5.1)
[2022-09-11 09:18] LABS: BUN/Creatinine Ratio 21.7 (10.0-20.0); Bilirubin, Total 0.6 mg/dL (0.2-1.0); Total Protein 7.3 g/dL (6.4-8.2)
[2022-09-12 11:44] LABS: Hepatitis A Ab IgM Negative; Hepatitis B Core IgM Negative; Hepatitis C Antibody Negative (Negative)
== END | disposition home or self-care (01) ==
LOC: LAB 08:27
PROVIDERS: ATTEND Nurse Practitioner Family
DX: R79.89 Other specified abnormal findings of blood chemistry (principal)
CPT/HCPCS: 36415; 80053; 80074

== ENCOUNTER 2022-10-02 06:38 | Inpatient (IN) | payer OTHER, MEDICAID ==
[~2022-10-02] VITALS: Ht 177.8 cm; Wt 67.7 kg
[~2022-10-02 06:38] MED LIST changes: -LISI-716 PO; +LISI10TA34 PO
[2022-10-02] MEDS ORDERED: ACCU-CHEK COMFORT CURVE STRIP VI ONE (07:00)
[2022-10-02] MEDS ORDERED: VANCOMYCIN 1GM/250ML 250 ML IV ONE (07:15)
[2022-10-02] MEDS ORDERED: LACTATED RINGER'S 2,000 ML IV ONE (07:15)
[2022-10-02] MEDS ORDERED: CEFEPIME 1GM/ 50ML 50 ML IV ONE (07:15)
[2022-10-02 07:21] LABS: Basophils # (auto) 0.1 10 ^3/uL (0-0.2); Basophils % (auto) 0.7 % (0.0-2.0); Eosinophils # (auto) 0 10 ^3/uL (0-0.8); Eosinophils % (auto) 0.2 % (0.0-7.0); Hematocrit 45.4 % (41.0-53.0); Hemoglobin 15.3 g/dL (13.5-17.5); Lymphocytes # (auto) 3.2 10 ^3/uL (0.4-5.4); Lymphocytes % (auto) 44.5 % (10.0-50.0); Mean Corpuscular Hemoglobin 30.3 pg (28.0-32.0); Mean Corpuscular Hgb Conc. 33.8 g/dL (32.0-36.0); Mean Corpuscular Volume 89.9 fL (80.0-100.0); Monocytes # (auto) 0.8 10 ^3/uL (0-1.3); Monocytes % (auto) 11.2 % (0.0-12.0); Neutrophils # (auto) 3.1 10 ^3/uL (1.6-8.6); Neutrophils % (auto) 43.4 % (37.0-80.0); Nucleated Red Blood Cells % 0.2 %; Red Blood Cells 5.05 10^6/uL (4.5-5.90); Red Cell Distribution Width 14.5 % (11.8-14.3); White Blood Cell 7.2 10^3/uL (4.4-10.8)
[2022-10-02 07:39] LABS: Albumin 2.9 g/dL (3.4-5.0); BUN/Creatinine Ratio 25.2 (10.0-20.0); Calcium 8.6 mg/dL (8.5-10.1); Magnesium 1.9 mg/dL (1.6-2.6); Potassium 4.3 mmol/L (3.5-5.1)
[2022-10-02 08:10] LABS: Bilirubin, Total 0.4 mg/dL (0.2-1.0); Total Protein 6.5 g/dL (6.4-8.2)
[2022-10-02 08:43] LABS: Urine Bacteria NONE SEEN /hpf (None Seen); Urine Blood Negative /uL (Negative); Urine Specific Gravity 1.019 (1.001-1.035); Urine WBC 10 /hpf (0 - 3)
[2022-10-02] MEDS ORDERED: DexAMETHasone SOD PHOS 10MG/1ML VIAL INJ IV ONE (08:45)
[2022-10-02] MEDS ORDERED: ACETAMINOPHEN 500 MG TAB PO PRN (11:30)
[2022-10-02] MEDS ORDERED: DOCUSATE SOD 100 MG CAP PO PRN (11:30)
[2022-10-02] MEDS ORDERED: MORPHINE SULFATE INJ 2 MG/ml SYRG IV PRN (11:30)
[2022-10-02] MEDS ORDERED: NITROGLYCERIN 0.4 MG SL TAB SL PRN (11:30)
[2022-10-02] MEDS ORDERED: DEXTROSE (50%) 50ML SYRG IV PRN (11:45)
[2022-10-02 12:39] LABS: Thyroid Stimulating Hormone 1.87 uIU/mL (0.358-3.74)
[2022-10-02] MEDS: SODIUM CHLOR 0.9% PF (SALINE LOCK) 10ML VIAL/SYR IV SCH ×2 (14:06→21:23)
[2022-10-02] MEDS: ACCU-CHEK COMFORT CURVE STRIP VI SCH ×2 (16:48→21:31)
[2022-10-02] MEDS: InsuLIN REG 1unit/0.01ml Soln (100units/ml) SC SCH ×2 (16:52→21:34)
[2022-10-02 21:31] VITALS: BP 120/79
[2022-10-02] MEDS: PRAVASTATIN SODIUM 20 MG TAB PO SCH (21:37)
[2022-10-02] MEDS: ALBUTEROL SULF HFA 90MCG INH 200DOSE IN PRN (22:07)
[2022-10-02] MEDS: BUDESONIDE (INHALATION) 180 MCG IH IN SCH (22:07)
[2022-10-03 05:02] LABS: Basophils # (auto) 0 10 ^3/uL (0-0.2); Basophils % (auto) 0.3 % (0.0-2.0); Eosinophils # (auto) 0 10 ^3/uL (0-0.8); Hematocrit 44.4 % (41.0-53.0); Hemoglobin 14.9 g/dL (13.5-17.5); Lymphocytes # (auto) 2.3 10 ^3/uL (0.4-5.4); Lymphocytes % (auto) 36.4 % (10.0-50.0); Mean Corpuscular Hemoglobin 29.9 pg (28.0-32.0); Mean Corpuscular Hgb Conc. 33.5 g/dL (32.0-36.0); Mean Corpuscular Volume 89.2 fL (80.0-100.0); Monocytes # (auto) 0.8 10 ^3/uL (0-1.3); Monocytes % (auto) 12.7 % (0.0-12.0); Neutrophils # (auto) 3.3 10 ^3/uL (1.6-8.6); Neutrophils % (auto) 50.6 % (37.0-80.0); Nucleated Red Blood Cells % 0.3 %; Red Blood Cells 4.98 10^6/uL (4.5-5.90); Red Cell Distribution Width 14.7 % (11.8-14.3); White Blood Cell 6.5 10^3/uL (4.4-10.8)
[2022-10-03 05:25] LABS: Albumin 2.6 g/dL (3.4-5.0); Calcium 8.8 mg/dL (8.5-10.1); Potassium 4.3 mmol/L (3.5-5.1)
[2022-10-03 05:27] LABS: BUN/Creatinine Ratio 24.8 (10.0-20.0)
[2022-10-03 05:29] LABS: Bilirubin, Total 0.5 mg/dL (0.2-1.0); Total Protein 6.7 g/dL (6.4-8.2)
[2022-10-03] MEDS: SODIUM CHLOR 0.9% PF (SALINE LOCK) 10ML VIAL/SYR IV SCH ×3 (05:54→23:02)
[2022-10-03] MEDS: ACCU-CHEK COMFORT CURVE STRIP VI SCH ×4 (06:29→23:01)
[2022-10-03] MEDS: BUDESONIDE (INHALATION) 180 MCG IH IN SCH ×2 (06:38→19:21)
[2022-10-03] MEDS: ALBUTEROL SULF HFA 90MCG INH 200DOSE IN PRN (06:38)
[2022-10-03] MEDS: InsuLIN REG 1unit/0.01ml Soln (100units/ml) SC SCH ×4 (07:53→23:02)
[2022-10-03] MEDS ORDERED: LISINOPRIL 10 MG TAB PO SCH (10:00)
[2022-10-03] MEDS ORDERED: CHOLECALCIFEROL (VITD3) 2,000 UNIT CAP/TAB PO SCH (10:00)
[2022-10-03] MEDS: DexAMETHasone SOD PHOS 10MG/1ML VIAL INJ IV SCH (12:53)
[2022-10-03] MEDS: ASCORBIC ACID 1,000 MG TAB PO SCH (12:54)
[2022-10-03] MEDS: glipiZIDE 5 MG TAB PO SCH (12:54)
[2022-10-03] MEDS: ENOXAPARIN SOD 40 MG/0.4 ML SYRINGE SC SCH (12:56)
[2022-10-03] MEDS: AZITHROMYCIN 500MG/ 250ML 250 ML IV SCH (13:06)
[2022-10-03] MEDS: ZINC SULFATE 220mg CAP or TAB PO SCH (13:06)
[2022-10-03] MEDS ORDERED: cefTRIAXone 1GM/50ML D5W 50 ML IV ONE (14:15)
[2022-10-03] MEDS: HALOPERIDOL LACTATE 5 MG/ML INJ VIAL IM PRN (17:07)
[2022-10-03] MEDS: ERGOCALCIFEROL 50,000 UNIT(1.25MG) CAP PO SCH (20:03)
[2022-10-03] MEDS: PRAVASTATIN SODIUM 20 MG TAB PO SCH ×2 (23:06→23:11)
[2022-10-04] MEDS: HALOPERIDOL LACTATE 5 MG/ML INJ VIAL IM PRN (01:50)
[2022-10-04] MEDS ORDERED: MELATONIN 5 MG TAB PO ONE (03:30)
[2022-10-04] MEDS ORDERED: LORazepam 2MG/ML-1ML VIAL IV ONE (03:45)
[2022-10-04] MEDS: SODIUM CHLOR 0.9% PF (SALINE LOCK) 10ML VIAL/SYR IV SCH ×3 (05:27→22:08)
[2022-10-04 05:48] LABS: Basophils # (auto) 0 10 ^3/uL (0-0.2); Basophils % (auto) 0.2 % (0.0-2.0); Eosinophils # (auto) 0 10 ^3/uL (0-0.8); Hematocrit 38.7 % (41.0-53.0); Hemoglobin 12.9 g/dL (13.5-17.5); Lymphocytes # (auto) 1.9 10 ^3/uL (0.4-5.4); Lymphocytes % (auto) 27.9 % (10.0-50.0); Mean Corpuscular Hemoglobin 30.3 pg (28.0-32.0); Mean Corpuscular Hgb Conc. 33.5 g/dL (32.0-36.0); Mean Corpuscular Volume 90.5 fL (80.0-100.0); Monocytes # (auto) 0.7 10 ^3/uL (0-1.3); Monocytes % (auto) 10.2 % (0.0-12.0); Neutrophils # (auto) 4.2 10 ^3/uL (1.6-8.6); Neutrophils % (auto) 61.7 % (37.0-80.0); Nucleated Red Blood Cells % 0.3 %; Red Blood Cells 4.27 10^6/uL (4.5-5.90); White Blood Cell 6.7 10^3/uL (4.4-10.8)
[2022-10-04] MEDS: ACCU-CHEK COMFORT CURVE STRIP VI SCH ×4 (06:28→22:08)
[2022-10-04] MEDS: InsuLIN REG 1unit/0.01ml Soln (100units/ml) SC SCH ×4 (06:34→22:11)
[2022-10-04 07:21] LABS: Calcium 9.2 mg/dL (8.5-10.1); Magnesium 2.2 mg/dL (1.6-2.6); Potassium 4.2 mmol/L (3.5-5.1)
[2022-10-04 07:23] LABS: BUN/Creatinine Ratio 26.4 (10.0-20.0)
[2022-10-04 07:26] LABS: Bilirubin, Total 0.5 mg/dL (0.2-1.0); Total Protein 7.6 g/dL (6.4-8.2)
[2022-10-04 09:00] VITALS: BP 94/55
[2022-10-04] MEDS: cefTRIAXone 1GM/50ML D5W 50 ML IV SCH (09:06)
[2022-10-04] MEDS: ASCORBIC ACID 1,000 MG TAB PO SCH (09:07)
[2022-10-04] MEDS: ZINC SULFATE 220mg CAP or TAB PO SCH (09:07)
[2022-10-04] MEDS: glipiZIDE 5 MG TAB PO SCH (09:08)
[2022-10-04] MEDS: ENOXAPARIN SOD 40 MG/0.4 ML SYRINGE SC SCH (09:09)
[2022-10-04] MEDS: DexAMETHasone SOD PHOS 10MG/1ML VIAL INJ IV SCH (09:16)
[2022-10-04] MEDS: AZITHROMYCIN 500MG/ 250ML 250 ML IV SCH (09:17)
[2022-10-04] MEDS ORDERED: FUROSEMIDE 20 MG/2 ML VIAL IV SCH (10:00)
[2022-10-04] MEDS ORDERED: DICL1GEL73 TOP (10:43)
[2022-10-04] MEDS ORDERED: ERGO1CAP12 PO (10:43)
[2022-10-04 13:00] VITALS: BP 113/52
[2022-10-04 17:00] VITALS: BP 121/75
[2022-10-04] MEDS ORDERED: ALBUTEROL SULF 2.5 MG/0.5ML(0.5%) NEB SOLN NEB PRN (18:00)
[2022-10-04 20:00] VITALS: BP 108/64
[2022-10-04 21:35] VITALS: BP 108/64
[2022-10-04] MEDS ORDERED: BUDESONIDE (INHALATION) 0.5 MG/2 ML NEB NEB SCH (22:00)
[2022-10-04] MEDS: PRAVASTATIN SODIUM 20 MG TAB PO SCH (22:08)
[2022-10-05] MEDS: SODIUM CHLOR 0.9% PF (SALINE LOCK) 10ML VIAL/SYR IV SCH ×3 (06:16→22:00)
[2022-10-05] MEDS: ACCU-CHEK COMFORT CURVE STRIP VI SCH ×4 (06:18→22:00)
[2022-10-05] MEDS: InsuLIN REG 1unit/0.01ml Soln (100units/ml) SC SCH ×4 (06:20→23:01)
[2022-10-05 09:00] VITALS: BP 106/71
[2022-10-05] MEDS: cefTRIAXone 1GM/50ML D5W 50 ML IV SCH (11:00)
[2022-10-05] MEDS: ZINC SULFATE 220mg CAP or TAB PO SCH (11:29)
[2022-10-05] MEDS: glipiZIDE 5 MG TAB PO SCH (11:29)
[2022-10-05] MEDS: DexAMETHasone SOD PHOS 10MG/1ML VIAL INJ IV SCH (11:30)
[2022-10-05] MEDS: ASCORBIC ACID 1,000 MG TAB PO SCH (11:30)
[2022-10-05] MEDS: AZITHROMYCIN 500MG/ 250ML 250 ML IV SCH (11:30)
[2022-10-05] MEDS: ENOXAPARIN SOD 40 MG/0.4 ML SYRINGE SC SCH (11:31)
[2022-10-05 13:00] VITALS: BP 116/67
[2022-10-05] MEDS ORDERED: REMDESIVIR PER PHARMACY 0 ML IV SCH (15:00)
[2022-10-05] MEDS ORDERED: IOHEXOL 350 MG/ML 100ML IJ ONE (15:28)
[2022-10-05 16:30] VITALS: BP 144/73
[2022-10-05 16:48] LABS: Albumin 2.8 g/dL (3.4-5.0); Calcium 7.8 mg/dL (8.5-10.1); Potassium 4.1 mmol/L (3.5-5.1)
[2022-10-05 16:52] LABS: Bilirubin, Total 0.4 mg/dL (0.2-1.0); Total Protein 6.7 g/dL (6.4-8.2)
[2022-10-05] MEDS ORDERED: REMDESIVIR 200 MG in NS 210ml LOADING DOSE ADULT IV ONE (18:15)
[2022-10-05] MEDS ORDERED: IPRATROPIUM BROM 0.5 MG/2.5ML INH SOL NEB PRN (18:45)
[2022-10-05] MEDS: SODIUM CHLORIDE 0.9% 1,000 ML IV SCH (19:00)
[2022-10-05 19:59] VITALS: BP 149/102
[2022-10-05] MEDS: HALOPERIDOL LACTATE 5 MG/ML INJ VIAL IM PRN (19:59)
[2022-10-05 22:38] LABS: INR 1.04 (0.9-1.15); Partial Thromboplastin Time 33.6 sec (24.6-33.4)
[2022-10-05] MEDS: PRAVASTATIN SODIUM 20 MG TAB PO SCH (22:54)
[2022-10-05] MEDS: HEPARIN SODIUM (PORCINE) 5000 UNITS/ML 1ML VIAL SC SCH (23:03)
[2022-10-06 01:14] VITALS: BP 149/102
[2022-10-06] MEDS: SODIUM CHLOR 0.9% PF (SALINE LOCK) 10ML VIAL/SYR IV SCH ×3 (06:05→22:00)
[2022-10-06] MEDS: ACCU-CHEK COMFORT CURVE STRIP VI SCH ×4 (06:38→22:00)
[2022-10-06] MEDS: InsuLIN REG 1unit/0.01ml Soln (100units/ml) SC SCH ×4 (06:42→22:57)
[2022-10-06] MEDS: cefTRIAXone 1GM/50ML D5W 50 ML IV SCH (08:53)
[2022-10-06 09:00] VITALS: BP 145/81
[2022-10-06] MEDS: ASPirin 81 mg TAB PO SCH (09:48)
[2022-10-06] MEDS: AZITHROMYCIN 500MG/ 250ML 250 ML IV SCH (09:48)
[2022-10-06] MEDS: ASCORBIC ACID 1,000 MG TAB PO SCH (09:49)
[2022-10-06] MEDS: ZINC SULFATE 220mg CAP or TAB PO SCH (09:49)
[2022-10-06] MEDS: HEPARIN SODIUM (PORCINE) 5000 UNITS/ML 1ML VIAL SC SCH ×2 (09:56→22:36)
[2022-10-06] MEDS ORDERED: METOPROLOL TARTRATE 25 MG TAB PO STA (10:01)
[2022-10-06] MEDS: glipiZIDE 5 MG TAB PO SCH (10:42)
[2022-10-06] MEDS: DexAMETHasone SOD PHOS 10MG/1ML VIAL INJ IV SCH (10:42)
[2022-10-06 12:03] LABS: Basophils # (auto) 0 10 ^3/uL (0-0.2); Basophils % (auto) 0.1 % (0.0-2.0); Eosinophils # (auto) 0 10 ^3/uL (0-0.8); Hematocrit 48.5 % (41.0-53.0); Lymphocytes # (auto) 1.1 10 ^3/uL (0.4-5.4); Mean Corpuscular Hemoglobin 29.5 pg (28.0-32.0); Mean Corpuscular Volume 89.4 fL (80.0-100.0); Monocytes # (auto) 0.7 10 ^3/uL (0-1.3); Monocytes % (auto) 7.9 % (0.0-12.0); Neutrophils # (auto) 7.3 10 ^3/uL (1.6-8.6); Nucleated Red Blood Cells % 0.2 %; Red Blood Cells 5.42 10^6/uL (4.5-5.90); Red Cell Distribution Width 14.3 % (11.8-14.3); White Blood Cell 9.1 10^3/uL (4.4-10.8)
[2022-10-06 13:49] LABS: Albumin 2.6 g/dL (3.4-5.0); Calcium 8.4 mg/dL (8.5-10.1); Potassium 4.5 mmol/L (3.5-5.1)
[2022-10-06 13:53] LABS: Bilirubin, Total 0.4 mg/dL (0.2-1.0); Total Protein 6.8 g/dL (6.4-8.2)
[2022-10-06 14:35] VITALS: BP 120/63
[2022-10-06] MEDS ORDERED: REMDESIVIR 100mg 100 MG in SODIUM CHL 0.9% 230 ML IV SCH (15:00)
[2022-10-06] MEDS ORDERED: REMDESIVIR 200 MG in NS 210ml LOADING DOSE ADULT IV ONE (15:00)
[2022-10-06] MEDS: IPRATROPIUM BROM 0.5 MG/2.5ML INH SOL NEB PRN (15:10)
[2022-10-06 17:23] VITALS: BP 133/70
[2022-10-06] MEDS: SODIUM CHLORIDE 0.9% 1,000 ML IV SCH (17:34)
[2022-10-06 21:30] VITALS: BP 124/72
[2022-10-06] MEDS: PRAVASTATIN SODIUM 20 MG TAB PO SCH (22:32)
[2022-10-06] MEDS: METOPROLOL TARTRATE 25 MG TAB PO SCH (22:33)
[2022-10-07 04:47] VITALS: BP 132/69
[2022-10-07] MEDS: SODIUM CHLOR 0.9% PF (SALINE LOCK) 10ML VIAL/SYR IV SCH ×3 (06:00→22:25)
[2022-10-07] MEDS: IPRATROPIUM BROM 0.5 MG/2.5ML INH SOL NEB PRN (06:49)
[2022-10-07] MEDS: ACCU-CHEK COMFORT CURVE STRIP VI SCH ×4 (07:00→22:25)
[2022-10-07] MEDS: InsuLIN REG 1unit/0.01ml Soln (100units/ml) SC SCH ×4 (07:00→22:41)
[2022-10-07 08:27] VITALS: BP 147/66
[2022-10-07] MEDS: cefTRIAXone 1GM/50ML D5W 50 ML IV SCH (08:37)
[2022-10-07] MEDS: DexAMETHasone SOD PHOS 10MG/1ML VIAL INJ IV SCH (08:38)
[2022-10-07] MEDS: ASPirin 81 mg TAB PO SCH ×2 (08:39→10:00)
[2022-10-07] MEDS: METOPROLOL TARTRATE 25 MG TAB PO SCH ×3 (08:39→22:24)
[2022-10-07] MEDS: ASCORBIC ACID 1,000 MG TAB PO SCH ×2 (08:39→10:00)
[2022-10-07] MEDS: ZINC SULFATE 220mg CAP or TAB PO SCH ×2 (08:39→10:00)
[2022-10-07] MEDS: HEPARIN SODIUM (PORCINE) 5000 UNITS/ML 1ML VIAL SC SCH ×2 (08:58→22:25)
[2022-10-07] MEDS ORDERED: FUROSEMIDE 40 MG/4 ML VIAL IV ONE (09:15)
[2022-10-07] MEDS: AZITHROMYCIN 500MG/ 250ML 250 ML IV SCH (10:06)
[2022-10-07 13:15] VITALS: BP 126/59
[2022-10-07 16:30] VITALS: BP 129/66
[2022-10-07 17:19] LABS: Potassium 4.4 mmol/L (3.5-5.1)
[2022-10-07 17:27] LABS: Albumin 2.9 g/dL (3.4-5.0); BUN/Creatinine Ratio 31.5 (10.0-20.0); Bilirubin, Total 0.6 mg/dL (0.2-1.0); Calcium 8.7 mg/dL (8.5-10.1); Total Protein 7.1 g/dL (6.4-8.2)
[2022-10-07] MEDS: REMDESIVIR 100mg 100 MG in SODIUM CHL 0.9% 230 ML IV SCH (17:33)
[2022-10-07 20:29] VITALS: BP 122/59
[2022-10-07] MEDS: PRAVASTATIN SODIUM 20 MG TAB PO SCH (22:23)
[2022-10-08 05:00] VITALS: BP 136/60
[2022-10-08 05:17] LABS: Basophils # (auto) 0 10 ^3/uL (0-0.2); Basophils % (auto) 0.1 % (0.0-2.0); Eosinophils # (auto) 0 10 ^3/uL (0-0.8); Hematocrit 51.3 % (41.0-53.0); Lymphocytes # (auto) 2.1 10 ^3/uL (0.4-5.4); Mean Corpuscular Hemoglobin 30.1 pg (28.0-32.0); Mean Corpuscular Hgb Conc. 33.2 g/dL (32.0-36.0); Mean Corpuscular Volume 90.6 fL (80.0-100.0); Monocytes # (auto) 1.1 10 ^3/uL (0-1.3); Monocytes % (auto) 11.3 % (0.0-12.0); Neutrophils # (auto) 6.6 10 ^3/uL (1.6-8.6); Neutrophils % (auto) 67.6 % (37.0-80.0); Nucleated Red Blood Cells % 0.2 %; Red Blood Cells 5.66 10^6/uL (4.5-5.90); Red Cell Distribution Width 14.2 % (11.8-14.3); White Blood Cell 9.8 10^3/uL (4.4-10.8)
[2022-10-08 05:32] LABS: Potassium 4.5 mmol/L (3.5-5.1)
[2022-10-08 05:38] LABS: Albumin 2.8 g/dL (3.4-5.0); BUN/Creatinine Ratio 32.2 (10.0-20.0); Bilirubin, Total 0.5 mg/dL (0.2-1.0); Calcium 8.9 mg/dL (8.5-10.1); Magnesium 2.7 mg/dL (1.6-2.6)
[2022-10-08] MEDS: SODIUM CHLOR 0.9% PF (SALINE LOCK) 10ML VIAL/SYR IV SCH ×3 (06:16→22:00)
[2022-10-08] MEDS: ACCU-CHEK COMFORT CURVE STRIP VI SCH ×4 (06:16→22:00)
[2022-10-08] MEDS: InsuLIN REG 1unit/0.01ml Soln (100units/ml) SC SCH ×4 (06:22→23:12)
[2022-10-08] MEDS: IPRATROPIUM BROM 0.5 MG/2.5ML INH SOL NEB PRN (06:51)
[2022-10-08] MEDS ORDERED: FUROSEMIDE 20 MG/2 ML VIAL IV ONE (07:45)
[2022-10-08 08:00] VITALS: BP 158/87
[2022-10-08] MEDS: cefTRIAXone 1GM/50ML D5W 50 ML IV SCH (08:49)
[2022-10-08] MEDS: DexAMETHasone SOD PHOS 10MG/1ML VIAL INJ IV SCH (08:50)
[2022-10-08] MEDS: METOPROLOL TARTRATE 25 MG TAB PO SCH ×2 (10:00→22:51)
[2022-10-08] MEDS: FUROSEMIDE 20 MG/2 ML VIAL IV SCH (10:00)
[2022-10-08] MEDS: ASPirin 81 mg TAB PO SCH (10:00)
[2022-10-08] MEDS: ASCORBIC ACID 1,000 MG TAB PO SCH (10:00)
[2022-10-08] MEDS: ZINC SULFATE 220mg CAP or TAB PO SCH (10:00)
[2022-10-08] MEDS: HEPARIN SODIUM (PORCINE) 5000 UNITS/ML 1ML VIAL SC SCH ×2 (10:58→22:52)
[2022-10-08 13:00] VITALS: BP 144/72
[2022-10-08] MEDS: REMDESIVIR 100mg 100 MG in SODIUM CHL 0.9% 230 ML IV SCH (16:21)
[2022-10-08 17:00] VITALS: BP 155/59
[2022-10-08 18:00] VITALS: BP 166/68
[2022-10-08 19:58] VITALS: BP 152/93
[2022-10-08] MEDS: PRAVASTATIN SODIUM 20 MG TAB PO SCH (22:50)
[2022-10-09 04:37] VITALS: BP 129/65
[2022-10-09] MEDS: ACCU-CHEK COMFORT CURVE STRIP VI SCH ×4 (06:24→21:31)
[2022-10-09] MEDS: InsuLIN REG 1unit/0.01ml Soln (100units/ml) SC SCH ×4 (06:27→21:50)
[2022-10-09] MEDS: SODIUM CHLOR 0.9% PF (SALINE LOCK) 10ML VIAL/SYR IV SCH ×3 (06:27→21:43)
[2022-10-09 08:00] VITALS: BP 134/58
[2022-10-09 09:00] VITALS: BP 134/58
[2022-10-09] MEDS: HEPARIN SODIUM (PORCINE) 5000 UNITS/ML 1ML VIAL SC SCH ×2 (09:03→21:31)
[2022-10-09] MEDS: cefTRIAXone 1GM/50ML D5W 50 ML IV SCH (09:04)
[2022-10-09] MEDS: DexAMETHasone SOD PHOS 10MG/1ML VIAL INJ IV SCH (09:05)
[2022-10-09] MEDS: FUROSEMIDE 20 MG/2 ML VIAL IV SCH (09:25)
[2022-10-09] MEDS: ASPirin 81 mg TAB PO SCH ×2 (09:59→11:42)
[2022-10-09] MEDS: METOPROLOL TARTRATE 25 MG TAB PO SCH ×3 (09:59→21:30)
[2022-10-09] MEDS: ZINC SULFATE 220mg CAP or TAB PO SCH ×2 (09:59→10:00)
[2022-10-09] MEDS: ASCORBIC ACID 1,000 MG TAB PO SCH ×2 (09:59→10:00)
[2022-10-09 12:55] VITALS: BP 154/75
[2022-10-09] MEDS: REMDESIVIR 100mg 100 MG in SODIUM CHL 0.9% 230 ML IV SCH (15:19)
[2022-10-09 17:01] VITALS: BP 152/70
[2022-10-09] MEDS: PRAVASTATIN SODIUM 20 MG TAB PO SCH (21:30)
[2022-10-09 22:00] VITALS: BP 151/77
[2022-10-10 04:50] VITALS: BP 149/77
[2022-10-10 04:54] LABS: Basophils # (auto) 0 10 ^3/uL (0-0.2); Basophils % (auto) 0.3 % (0.0-2.0); Eosinophils # (auto) 0 10 ^3/uL (0-0.8); Hematocrit 56.9 % (41.0-53.0); Lymphocytes # (auto) 2.1 10 ^3/uL (0.4-5.4); Lymphocytes % (auto) 14.8 % (10.0-50.0); Mean Corpuscular Hemoglobin 30.4 pg (28.0-32.0); Mean Corpuscular Hgb Conc. 33.3 g/dL (32.0-36.0); Mean Corpuscular Volume 91.2 fL (80.0-100.0); Monocytes # (auto) 1.4 10 ^3/uL (0-1.3); Monocytes % (auto) 10.1 % (0.0-12.0); Neutrophils # (auto) 10.8 10 ^3/uL (1.6-8.6); Neutrophils % (auto) 74.8 % (37.0-80.0); Nucleated Red Blood Cells % 0.3 %; Red Blood Cells 6.24 10^6/uL (4.5-5.90); Red Cell Distribution Width 14.5 % (11.8-14.3); White Blood Cell 14.4 10^3/uL (4.4-10.8)
[2022-10-10 05:10] LABS: Calcium 9.6 mg/dL (8.5-10.1); Potassium 4.7 mmol/L (3.5-5.1)
[2022-10-10 05:15] LABS: BUN/Creatinine Ratio 45.3 (10.0-20.0); Bilirubin, Total 0.7 mg/dL (0.2-1.0); Total Protein 7.6 g/dL (6.4-8.2)
[2022-10-10] MEDS: SODIUM CHLOR 0.9% PF (SALINE LOCK) 10ML VIAL/SYR IV SCH ×3 (06:00→21:25)
[2022-10-10] MEDS: ACCU-CHEK COMFORT CURVE STRIP VI SCH ×4 (07:01→21:24)
[2022-10-10] MEDS: InsuLIN REG 1unit/0.01ml Soln (100units/ml) SC SCH ×4 (07:05→21:51)
[2022-10-10 08:00] VITALS: BP 141/84
[2022-10-10] MEDS: ASPirin 81 mg TAB PO SCH (10:00)
[2022-10-10] MEDS: ASCORBIC ACID 1,000 MG TAB PO SCH (10:00)
[2022-10-10] MEDS: METOPROLOL TARTRATE 25 MG TAB PO SCH ×2 (10:00→21:23)
[2022-10-10] MEDS: ZINC SULFATE 220mg CAP or TAB PO SCH (10:00)
[2022-10-10] MEDS: DexAMETHasone SOD PHOS 10MG/1ML VIAL INJ IV SCH (11:29)
[2022-10-10 11:30] VITALS: BP 141/84
[2022-10-10] MEDS: cefTRIAXone 1GM/50ML D5W 50 ML IV SCH (11:30)
[2022-10-10] MEDS: HEPARIN SODIUM (PORCINE) 5000 UNITS/ML 1ML VIAL SC SCH ×2 (11:49→21:24)
[2022-10-10 13:00] VITALS: BP 149/71
[2022-10-10] MEDS: REMDESIVIR 100mg 100 MG in SODIUM CHL 0.9% 230 ML IV SCH (15:38)
[2022-10-10 17:00] VITALS: BP 140/72
[2022-10-10] MEDS: ERGOCALCIFEROL 50,000 UNIT(1.25MG) CAP PO SCH (20:45)
[2022-10-10] MEDS: PRAVASTATIN SODIUM 20 MG TAB PO SCH (21:23)
[2022-10-10 21:30] VITALS: BP 143/77
[2022-10-11 05:00] VITALS: BP 146/79
[2022-10-11] MEDS: SODIUM CHLOR 0.9% PF (SALINE LOCK) 10ML VIAL/SYR IV SCH ×2 (06:00→13:09)
[2022-10-11] MEDS: InsuLIN REG 1unit/0.01ml Soln (100units/ml) SC SCH ×2 (07:00→11:30)
[2022-10-11] MEDS: ACCU-CHEK COMFORT CURVE STRIP VI SCH ×2 (07:10→13:10)
[2022-10-11 07:30] VITALS: BP 143/81
[2022-10-11 08:59] LABS: Anion Gap 14 (5-15); BUN/Creatinine Ratio 41.7 (10.0-20.0); Calcium 9.9 mg/dL (8.5-10.1); Carbon Dioxide 22 mmol/L (21-32); Chloride 114 mmol/L (98-107); GFR African American 43 mL/min; GFR Non-African American 35 mL/min; Glucose 235 mg/dL (74-106); Potassium 4.7 mmol/L (3.5-5.1); Sodium 150 mmol/L (136-145)
[2022-10-11 09:02] LABS: Blood Urea Nitrogen 80 mg/dL (7-18)
[2022-10-11] MEDS: cefTRIAXone 1GM/50ML D5W 50 ML IV SCH (09:25)
[2022-10-11] MEDS: DexAMETHasone SOD PHOS 10MG/1ML VIAL INJ IV SCH (09:26)
[2022-10-11] MEDS: HEPARIN SODIUM (PORCINE) 5000 UNITS/ML 1ML VIAL SC SCH (09:29)
[2022-10-11] MEDS: ASPirin 81 mg TAB PO SCH (09:44)
[2022-10-11] MEDS: ZINC SULFATE 220mg CAP or TAB PO SCH (09:44)
[2022-10-11] MEDS: METOPROLOL TARTRATE 25 MG TAB PO SCH (09:44)
[2022-10-11] MEDS: ASCORBIC ACID 1,000 MG TAB PO SCH (09:45)
[2022-10-11] MEDS ORDERED: D5W 5% 1,000 ML IV ONE (12:00)
[2022-10-11 15:15] VITALS: BP 146/79
== END 2022-10-11 17:55 | DRG 177 ==
LOC: EDBD 06:38 → ER 06:38 → TELE 11:37 → TELE-CENTR 10-04 08:43
PROVIDERS: ADMIT Nurse Practitioner Family; ATTEND Internal Medicine
PROC: XW033E5 Introduction of Remdesivir Anti-infective into Peripheral Vein, Percutaneous Approach, New Technology Group 5 (ICD-10-PCS; principal; 2022-10-06)
DX: U07.1 COVID-19 (principal); G93.41 Metabolic encephalopathy; J12.82 Pneumonia due to coronavirus disease 2019; J96.01 Acute respiratory failure with hypoxia; J98.11 Atelectasis; Z66 Do not resuscitate; E78.5 Hyperlipidemia, unspecified; F03.90 Unspecified dementia, unspecified severity, without behavioral disturbance, psychotic disturbance, mood disturbance, and anxiety; I25.10 Atherosclerotic heart disease of native coronary artery without angina pectoris; I12.9 Hypertensive chronic kidney disease with stage 1 through stage 4 chronic kidney disease, or unspecified chronic kidney disease; E11.22 Type 2 diabetes mellitus with diabetic chronic kidney disease; N18.30 Chronic kidney disease, stage 3 unspecified; K59.00 Constipation, unspecified; Z87.442 Personal history of urinary calculi; I25.2 Old myocardial infarction; Z98.61 Coronary angioplasty status; Z82.49 Family history of ischemic heart disease and other diseases of the circulatory system; Z79.84 Long term (current) use of oral hypoglycemic drugs; Z79.899 Other long term (current) drug therapy
CPT/HCPCS: 36415; 36600; 70450; 71045; 71250; 71275; 74176; 80048; 80053; 81001; 82140; 82306; 82728; 82805; 82962; 83036; 83605; 83615; 83735; 83880; 84443; 84484; 85025; 85379; 85610; 85730; 86141; 87040; 87086; 87426; 87804; 93005; 93306; 94640; 96365; 96366; 96367; 96375; 97163; G0378; J0696; J1100; J1815